=== PATIENT | female | born 1965 | race Caucasian/White ===

== ENCOUNTER 2021-09-23 01:37 | Inpatient (IN) ==
[2021-09-23] MEDS ORDERED: HYDROmorphone INJ 1 MG/ML SYRINGE IV STA ×2 (02:31→03:05)
[2021-09-23] MEDS ORDERED: ONDANSETRON INJ 2 MG/ML 2 ML VIAL IV STA (02:31)
--- NOTE | 2021-09-23 02:41 | Emergency Department Note ---
Impression & Plan Intractable low back pain, Left lumbar radiculopathy Admit to the [facility] ED Provider Note NAME: LAVON VALDEZ AGE: 56 SEX: F ARRIVES VIA: Walk-In INFORMANT: Patient ED PROVIDER(S): Yazmin Ceballos DO CHIEF COMPLAINT: Left leg pain PLAN: Disposition: Admit to the [facility] Condition: Fair MEDICAL DECISION MAKING: This is a 56-year-old female patient with severe left-sided low back pain and lumbar radiculopathy. The patient had obvious nerve root compression on MRI from June and has worsening pain in the low back and left leg. The patient presents to the ER today with numbness to the left foot left calf. Patient was treated with multiple doses of IV antiemetics and IV steroids and continues with moderate to severe pain that she rates as a 7/10. I have discussed the case with the [facility] and they will evaluate for further management. Triage Nursing notes reviewed and agree with them. Additional history obtained from her who is at the bedside Prior medical records reviewed including MRI report of the lumbar spine from 06/28/2021 Vital Signs: reviewed and unremarkable Differential diagnosis: Lumbar radiculopathy; nerve root compression at L4/L5 ER treatment provided: IV Dilaudid x2 IV Zofran IV Decadron Diagnostics interpreted by me: Cardiac Monitoring: Normal sinus rhythm at 82 Laboratory studies: See below Imaging studies: MRI of the lumbar spine with contrast done at [facility] on 06/28/2021 Status post laminectomy at [id number] nerve root compression at L4/L5 with significant disc bulge HPI: 56/F arrives for evaluation of left-sided low back pain and left leg pain; New left foot numbness. The patient went laminectomy at L4/L5 on 05/17/2021 at [facility]. Approximately 2 weeks after the surgery, the patient began to develop significant left-sided low back pain with lumbar radiculopathy down the left lower extremity. She followed up twice with her surgeon and has undergone multiple bursts of prednisone with no relief of the pain. She had a follow-up MRI of the lumbar spine which showed disc bulge and compression of the exiting nerve root at L4/L5. She presents here tonight with significant worsening of the pain over the past 48 hours and numbness to the left foot and posterior left calf. ROS: See above HPI for pertinent positives & negatives. A total of 10 systems reviewed and were otherwise negative. PAST MEDICAL HISTORY:See Below PAST SURGICAL HISTORY:Laminectomy L4/L5 FAMILY HISTORY:See Below SOCIAL HISTORY:Patient is HOME MEDICATIONS:See list ALLERGIES:None VITALS:See Below PHYSICAL EXAMINATION: HEENT: Head - normocephalic and atraumatic. Pupils are equal, round, and reactive to light. Extraocular eye muscles are intact and sclera are anicteric. Ears - bilaterally patent canals with noninjected tympanic membranes and no evidence of hemotympanum. Nose - moist nasal mucosa without discharge. Mouth - moist buccal mucosa. Oropharynx is nonerythematous and there is no tonsillar exudate or edema noted. Neck: Supple; no cervical lymphadenopathy. Heart: Regular rate and rhythm. There is a normal S1 and S2 with no murmurs, clicks, or gallops appreciated. Lungs: Clear to auscultation bilaterally with no wheezes, rales, or rhonchi. Abdomen: Soft, completely nontender, nondistended, with good bowel sounds. Th ere are no palpable pulsatile masses or hepatosplenomegaly. There is no guarding, rigidity, or rebound noted. Extremities: No evidence of cyanosis, clubbing, or edema. There are easily palpable peripheral pulses. Neuro:The patient is awake and alert, oriented to day, time, and place. Muscle strength is 5/5 in all 4 extremities. 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 The patient has significant pain with flexion of the left hip. Patient has numbness noted to the lateral aspect of the left foot and the posterior left calf. Patellar reflexes are 2/4 in both lower extremities. Back: Patient has pain to palpation over the inferior lumbar spine specifically on the left. ED COURSE: Times/Reassessments: 200: The patient was initially evaluated by the [facility]. I evaluated the patient in room C 11. A complete history and physical was performed. I reviewed the report of the MRI of the lumbar spine from 06/28/2021. An IV lock was initiated and labs were drawn as above. The patient was given IV Dilaudid and Zofran. Upon repeat evaluation, the patient had very little relief of her symptoms. She was given a second dose of IV Dilaudid and a dose of IV Decadron. Upon reevaluation of the patient, she was still quite uncomfortable with pain that she rated as a 7/10. I discussed the case with the [facility] and they will evaluate the patient for further care. Yazmin Ceballos DO Past Med/Surg History Medical History (Updated 09/23/21 @ 05:57 by Yazmin Ceballos DO) Depression GERD (gastroesophageal reflux disease) History of endometriosis L4-L5 disc bulge Lumbar back pain with radiculopathy affecting left lower extremity Neuropathy LEFT ARM Tinnitus, bilateral Surgical History H/O elbow surgery RT History of colonoscopy History of endometrial ablation History of partial hysterectomy History of tooth extraction Nausea and vomiting after administration of anesthetic agent S/P cholecystectomy Family History Father Family history of diabetes mellitus Other No family history of adverse response to anesthesia Social History Smoking Status: Never smoker Second Hand Exposure: No; Hx Alcohol Use: Yes Alcohol type: beer Preferred Language: Somali 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 Beliefs That Will Affect Care: None Current Living Situation: Family Feels Safe at Home: Yes Assistive Devices: Contacts Allergies Allergies Allergy/AdvReac Type Severity Reaction Status Date / Time No Known Drug Allergies Allergy Unknown NKDA Verified 09/23/21 02:28 Home Meds Home Medications Medication Instructions Recorded Confirmed ascorbic acid (vitamin C) 250 mg 0 mg PO DAILY 09/23/21 09/23/21 tablet (Vitamin C) calcium 500 mg tablet 500 mg PO DAILY 09/23/21 09/23/21 duloxetine 60 mg capsule,delayed 60 mg PO CQWK 09/23/21 09/23/21 release multivitamin 1 tab PO DAILY 09/23/21 09/23/21 omeprazole 20 mg capsule,delayed 20 mg PO DAILY 09/23/21 09/23/21 release tramadol 50 mg tablet 50 mg PO Q8H PRN 09/23/21 09/23/21 vitamin B complex 1 tab PO DAILY 09/23/21 09/23/21 Results & Data (ED) Vital Signs Vital Signs - 24 hr 09/23/21 01:38 09/23/21 01:53 09/23/21 03:00 Temperature 36.4 C L Temperature Source Temporal Artery Scan Pulse Rate 95 H Pulse Rate [Right Finger] 93 H Pulse Rhythm Pulse Rhythm [Right Finger] Regular Pulse Strength [Right Finger] Normal Respiratory Rate 18 22 Respiratory Effort / Characteristics Non-Labored Non-Labored Respiratory Depth Normal Normal Blood Pressure 145/55 H Blood Pressure [Left Arm] 141/98 H Blood Pressure Mean 85 Blood Pressure Mean [Left Arm] 112 Blood Pressure Position [Left Arm] Pulse Oximetry 98 95 Oxygen Delivery Method Room Air Oxygen Flow Rate Sepsis Recent Fever Within 48 Hours No Sepsis New/Unexplained Change in Mental Status N/A Sepsis Action Taken by Nursing No Action Required Pulse Oximetry Post Tiitration 09/23/21 03:33 09/23/21 04:35 09/23/21 04:36 Temperature Temperature Source Pulse Rate 96 H Pulse Rate [Right Finger] 92 H Pulse Rhythm Regular Pulse Rhythm [Right Finger] Regular Pulse Strength [Right Finger] Normal Respiratory Rate 16 12 Respiratory Effort / Characteristics Non-Labored Spontaneous Respiratory Depth Normal Blood Pressure Blood Pressure [Left Arm] 145/103 H Blood Pressure Mean Blood Pressure Mean [Left Arm] 117 Blood Pressure Position [Left Arm] Sitting Pulse Oximetry 94 88 L 88 L Oxygen Delivery Method Room Air Room Air Nasal Cannula Oxygen Flow Rate 2 Sepsis Recent Fever Within 48 Hours Sepsis New/Unexplained Change in Mental Status Sepsis Action Taken by Nursing Pulse Oximetry Post Tiitration 94 Laboratory Data Result diagrams: 09/23/21 02:35 09/23/21 02:35 Lab Results 09/23/21 09/23/21 09/23/21 Range/Units 02:35 02:35 03:53 WBC 8.58 (4.8-10.8) K/uL RBC 4.57 (4.2-5.4) M/uL Hgb 14.3 (12.0-16.0) g/dL Hct 42.2 (37-47) % MCV 92.3 (80-100) fL MCH 31.3 (25-34) pg MCHC 33.9 (32-36) g/dL RDW Std Deviation 43.5 (36.4-46.3) fL RDW Coeff of Phyllis 12.9 (11.5-14.5) % Plt Count 220 (130-400) K/uL MPV 11.3 H (7.4-10.4) fL Immature Gran % (Auto) 0.1 % Neut % (Auto) 66.8 % Lymph % (Auto) 21.2 % [place] % (Auto) 9.4 % Eos % (Auto) 2.3 % Baso % (Auto) 0.2 % Neut # (Auto) 5.72 (1.4-6.5) K/uL Lymph # (Auto) 1.82 (1.2-3.4) K/uL [place] # (Auto) 0.81 H (0.11-0.59) K/uL Eos # (Auto) 0.20 (0-0.5) K/uL Baso # (Auto) 0.02 (0-0.2) K/uL Immature Gran # (Auto) 0.01 (0.00-0.02) K/uL Sodium 137 (136-145) mmol/L Potassium 3.9 (3.5-5.1) mmol/L Chloride 103 (98-107) mmol/L Carbon Dioxide 28 (21-32) mmol/L Anion Gap 6 (3-11) BUN 20 (6-23) mg/dl Creatinine 0.86 (0.6-1.2) mg/dl Est Cr Clr Drug Dosing 84.8 ml/min Est GFR ( Amer) 87.5 ml/min Est GFR (Non-Af Amer) 75.5 ml/min BUN/Creatinine Ratio 23.3 H (10-20) Glucose 151 H (70-99(Fasting)) mg/dl Calcium 9.7 (8.5-10.1) mg/dl SARS-CoV-2, RNA, NAAT NEGATIVE (NEGATIVE) Administered Medications Discontinued Medications Dexamethasone (Dexamethasone Sod Inj 4 Mg/Ml Vial) 10 mg IV NOW STA Stop: 09/23/21 03:06 Last Admin: 09/23/21 03:11 Dose: 10 mg Documented by: [id number] Hydromorphone HCl (Hydromorphone Inj 1 Mg/Ml Syringe) 1 mg IV NOW STA Stop: 09/23/21 02:32 Last Admin: 09/23/21 02:43 Dose: 1 mg Documented by: [id number] Hydromorphone HCl (Hydromorphone Inj 1 Mg/Ml Syringe) 1 mg IV NOW STA Stop: 09/23/21 03:06 Last Admin: 09/23/21 03:12 Dose: 1 mg Documented by: [id number] Ondansetron HCl (Ondansetron Inj 2 Mg/Ml 2 Ml Vial) 4 mg IV NOW STA Stop: 09/23/21 02:32 Last Admin: 09/23/21 02:43 Dose: 4 mg Documented by: [id number] Discharge Plan Visit Data Chief Complaint: Leg Injury/Pain Stated Complaint: PAIN IN LEFT LEG ED Provider: Yazmin Ceballos Discharge Problem: Intractable low back pain, Left lumbar radiculopathy Patient Disposition: Admitted As Inpatient Discharge Instructions Interventions: ED Discharge Assessment Last Done: 09/23/21 05:26
[2021-09-23 02:53] LABS: Hematocrit (blood only) 42.2 % (37-47); Hemoglobin 14.3 g/dL (12.0-16.0); Mean Corpuscular Hemoglobin 31.3 pg (25-34); Mean Corpuscular Hgb Conc 33.9 g/dL (32-36); Mean Corpuscular Volume 92.3 fL (80-100); Mean Platelet Volume 11.3 fL (7.4-10.4); Platelet Count 220 K/uL (130-400); RDW Coefficient of Variation 12.9 % (11.5-14.5); RDW Standard Deviation 43.5 fL (36.4-46.3); Red Blood Count 4.57 M/uL (4.2-5.4); White Blood Count 8.58 K/uL (4.8-10.8)
[2021-09-23] MEDS ORDERED: DEXAMETHASONE SOD INJ 4 MG/ML VIAL IV STA (03:05)
[2021-09-23 03:14] LABS: BUN Creatinine Ratio 23.3 (10-20); Calcium 9.7 mg/dl (8.5-10.1); Creatinine Clr Calc Pharmacy 84.8 ml/min; Est GFR (African American) 87.5 ml/min; Est GFR (Non-African American) 75.5 ml/min; Potassium 3.9 mmol/L (3.5-5.1)
[2021-09-23 03:17] LABS: Basophils # (auto) 0.02 K/uL (0-0.2); Basophils % (auto) 0.2 %; Eosinophils % (auto) 2.3 %; Immature Granulocytes # (auto) 0.01 K/uL (0.00-0.02); Immature Granulocytes % (auto) 0.1 %; Lymphocytes # (auto) 1.82 K/uL (1.2-3.4); Lymphocytes % (auto) 21.2 %; Monocytes # (auto) 0.81 K/uL (0.11-0.59); Monocytes % (auto) 9.4 %; Neutrophils # (auto) 5.72 K/uL (1.4-6.5); Neutrophils % (auto) 66.8 %
--- NOTE | 2021-09-23 05:15 | History & Physical Report ---
Date of Service September 23, 2021 Assessment & Plan (1) L4-L5 disc bulge: Plan: L4/L5 disc bulge/lumbar back pain with LLE radiculopathy/status post lumbar laminectomy L4-L5 on 06/06/2021 at [facility]- Received dexamethasone 10 mg IV in the ED and Dilaudid 1 mg IV x2 with some relief in symptoms this evening Dexamethasone 6 mg IV every 8 hours Acetaminophen 650 mg p.o. every 6 hours as needed mild pain or fever Increase her tramadol from 50 mg p.o. every 8 hours as needed to 100 mg p.o. every 6 hours as needed moderate pain Dilaudid 1 mg IV every 3 hours as needed for severe pain Continue duloxetine, but change from extended release to 60 mg p.o. daily due to formulary issues Consult orthopedic spine surgery Dr. Oneal (2) Lumbar back pain with radiculopathy affecting left lower extremity: Plan: Patient is status post (3) GERD (gastroesophageal reflux disease): Plan: Continue omeprazole/pantoprazole History of Present Illness Chief Complaint: The patient presents to the emergency department with complaint of worsening left-sided low back and left lower extremity leg pain, with foot numbness Primary Care Provider: Merna Slater MD The patient is a 56-year-old female with a past medical history including GERD, SNHL, gluteus minimus tendon tear, cervical radiculopathy, left hip trochanteric bursitis, gluteal tendinitis of left buttock, and status post lumbar laminectomy at L4/L5 on 05/17/2021 at [facility]. Patient reports that her symptoms did not appreciably improve, and in fact 2 weeks after surgery and since that time, her symptoms have gradually worsened. She has been relatively incapacitated, primarily sitting on her chair for most of the day at home. She reports having undergone 3 courses of prednisone without significant improvement . She did have 1 pain management ejection sometime in June. She did undergo an MRI on 06/28/2021, which showed a bulging disc with compression of exiting nerve root at L4/L5. She presents to the emergency department this evening, due to inability to tolerate the pain any longer Allergies Allergy/AdvReac Type Severity Reaction Status Date / Time No Known Drug Allergies Allergy Unknown NKDA Verified 09/23/21 02:28 Home Medications Medication Instructions Recorded Confirmed Type ascorbic acid (vitamin C) 250 mg 0 mg PO DAILY 09/23/21 09/23/21 History tablet (Vitamin C) calcium 500 mg tablet 500 mg PO DAILY 09/23/21 09/23/21 History duloxetine 60 mg capsule,delayed 60 mg PO CQWK 09/23/21 09/23/21 History release multivitamin 1 tab PO DAILY 09/23/21 09/23/21 History omeprazole 20 mg capsule,delayed 20 mg PO DAILY 09/23/21 09/23/21 History release tramadol 50 mg tablet 50 mg PO Q8H PRN 09/23/21 09/23/21 History vitamin B complex 1 tab PO DAILY 09/23/21 09/23/21 History Past Med/Surg History Medical History (Updated 09/23/21 @ 05:11 by Rasheed Beckham MD) Depression GERD (gastroesophageal reflux disease) History of endometriosis L4-L5 disc bulge Lumbar back pain with radiculopathy affecting left lower extremity Neuropathy LEFT ARM Tinnitus, bilateral Surgical History H/O elbow surgery RT History of colonoscopy History of endometrial ablation History of partial hysterectomy History of tooth extraction Nausea and vomiting after administration of anesthetic agent S/P cholecystectomy Family History Father Family history of diabetes mellitus Other No family history of adverse response to anesthesia Social History Smoking Status: Never smoker Second Hand Exposure: No; Hx Alcohol Use: Yes Alcohol type: beer Preferred Language: Panamanian 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 Plate Forming Required: No Beliefs That Will Affect Care: None Current Living Situation: Family Feels Safe at Home: Yes Assistive Devices: Contacts Review of Systems Review of Systems: The patient denies chest pain, palpitations, shortness of breath, dyspnea on exertion, cough, lower extremity swelling, sore throat, fevers, chills, sweats, weight change, fatigue, nausea, vomiting, diarrhea , constipation, abdominal pain, pelvic pain, blood in urine or stool, dysuria, urinary frequency or urgency, lightheadedness, dizziness, headache, memory loss, loss of consciousness, rash, abnormal bruising or bleeding, imbalance, focal or generalized weakness, numbness or tingling in arms or right leg, generalized arthralgias or myalgias, or night sweats. The review of systems is otherwise negative other than for that already noted above, and at least 10 systems have been reviewed. Physical Exam Physical Exam: The patient is awake, alert and oriented 3, well developed and well nourished, normocephalic and atraumatic, lying in bed and in no acute distress. HEENT--PERRL, EOMI, mucous membranes and oropharynx dry. Neck--supple. No JVD. No bruits. Thyroid normal, trachea midline, no adenopathy . Heart--normal S1 and S2. No murmurs, rubs or gallops. Lungs--clear bilaterally, no respiratory distress, no accessory muscle use. Abdomen--normal bowel sounds and soft. Nontender. Nondistended, no hernias or masses, no organomegaly. Extremities--no cyanosis or clubbing. No edema. There are good distal pulses bilaterally. Dermatologic--normal skin turgor, normal color, no abnormal lymph nodes, no rash. Neurologic--cranial nerves II through XII grossly intact. Rheumatologic--limited exam due to low back and left leg pain Psychiatric--normal affect. Results & Data Results & Data ([facility]) Vital Signs (Past 12 Hours) Vital Signs Temp Pulse Pulse Resp BP BP Pulse Ox 09/23/21 04:36 88 L 09/23/21 04:35 96 H 12 88 L 09/23/21 03:33 92 H 16 145/103 H 94 09/23/21 03:00 93 H 22 141/98 H 95 09/23/21 01:38 36.4 C L 95 H 18 145/55 H 98 Laboratory Results Laboratory Results WBC 8.58 K/uL (4.8-10.8) 09/23/21 02:35 RBC 4.57 M/uL (4.2-5.4) 09/23/21 02:35 Hgb 14.3 g/dL (12.0-16.0) 09/23/21 02:35 Hct 42.2 % (37-47) 09/23/21 02:35 MCV 92.3 fL (80-100) 09/23/21 02:35 MCH 31.3 pg (25-34) 09/23/21 02:35 MCHC 33.9 g/dL (32-36) 09/23/21 02:35 RDW Std Deviation 43.5 fL (36.4-46.3) 09/23/21 02:35 RDW Coeff of Phyllis 12.9 % (11.5-14.5) 09/23/21 02:35 Plt Count 220 K/uL (130-400) 09/23/21 02:35 MPV 11.3 fL (7.4-10.4) H 09/23/21 02:35 Immature Gran % (Auto) 0.1 % 09/23/21 02:35 Neut % (Auto) 66.8 % 09/23/21 02:35 Lymph % (Auto) 21.2 % 09/23/21 02:35 [place] % (Auto) 9.4 % 09/23/21 02:35 Eos % (Auto) 2.3 % 09/23/21 02:35 Baso % (Auto) 0.2 % 09/23/21 02:35 Neut # (Auto) 5.72 K/uL (1.4-6.5) 09/23/21 02:35 Lymph # (Auto) 1.82 K/uL (1.2-3.4) 09/23/21 02:35 [place] # (Auto) 0.81 K/uL (0.11-0.59) H 09/23/21 02:35 Eos # (Auto) 0.20 K/uL (0-0.5) 09/23/21 02:35 Baso # (Auto) 0.02 K/uL (0-0.2) 09/23/21 02:35 Immature Gran # (Auto) 0.01 K/uL (0.00-0.02) 09/23/21 02:35 Sodium 137 mmol/L (136-145) 09/23/21 02:35 Potassium 3.9 mmol/L (3.5-5.1) 09/23/21 02:35 Chloride 103 mmol/L (98-107) 09/23/21 02:35 Carbon Dioxide 28 mmol/L (21-32) 09/23/21 02:35 Anion Gap 6 (3-11) 09/23/21 02:35 BUN 20 mg/dl (6-23) 09/23/21 02:35 Creatinine 0.86 mg/dl (0.6-1.2) 09/23/21 02:35 Est Cr Clr Drug Dosing 84.8 ml/min 09/23/21 02:35 Est GFR ( Amer) 87.5 ml/min 09/23/21 02:35 Est GFR (Non-Af Amer) 75.5 ml/min 09/23/21 02:35 BUN/Creatinine Ratio 23.3 (10-20) H 09/23/21 02:35 Glucose 151 mg/dl (70-99(Fasting)) H 09/23/21 02:35 Calcium 9.7 mg/dl (8.5-10.1) 09/23/21 02:35 SARS-CoV-2, RNA, NAAT NEGATIVE (NEGATIVE) 09/23/21 03:53 Code Status & VTE Plan Code Status Full code VTE Prophylaxis Plan VTE Prophylaxis will be ordered: Yes PG Care Time/CCT Total # of Minutes Spent Total Time Spent with Patient: Total time spent is greater than 50% in coordination of care (as documented) at patient's floor/unit and/or counseling patient: Coding Level of Care Code INT OBSERVATION CARE 70M LVL 3 Diagnoses L4-L5 disc bulge M51.26 Lumbar back pain with radiculopathy affecting left lower extremity M54.16 GERD (gastroesophageal reflux disease) K21.9
[2021-09-23] MEDS ORDERED: ONDANSETRON INJ 2 MG/ML 2 ML VIAL IV PRN (05:55)
[2021-09-23] MEDS ORDERED: ACETAMINOPHEN 325 MG TAB PO PRN (05:55)
[2021-09-23] MEDS: HYDROmorphone INJ 1 MG/ML SYRINGE IV PRN ×3 (06:19→23:37)
--- NOTE | 2021-09-23 08:21 | Hospitalist Progress Note ---
Date of Service September 23, 2021 Assessment & Plan (1) L4-L5 disc bulge: Plan: L4/L5 disc bulge/lumbar back pain with LLE radiculopathy/status post lumbar laminectomy L4-L5 on 06/06/2021 at [facility]- Received dexamethasone 10 mg IV in the ED and Dilaudid 1 mg IV x2 with some relief in symptoms Pain control -Continue dexamethasone 6 mg IV q8h -Scheduled acetaminophen 650 mg PO q6h -Tramadol 100 q6h PRN -Dilaudid 1 mg IV q3h as needed for severe pain -Continue duloxetine, but change from extended release to 60 mg p.o. daily due to formulary issues Orthopedics consulted -Lumbar spine XR- no acute process, degenerative change -Lumbar spine MRI pending, will decide surgical vs nonsurgical management then (2) Lumbar back pain with radiculopathy affecting left lower extremity: Plan: Patient is status post laminectomy 05/2021 (3) GERD (gastroesophageal reflux disease): Plan: Continue omeprazole/pantoprazole Admission and Anticipated Discharge Date Admission Date: September 23, 2021 Supervising Physician Co-Signing Physician Notes I personally examined the patient and verified all rosenbaum points of history and exam, discussed case, and agree with decision making with Dr Hall pain controlled w judie. awaiting MRI reading vitals noted nad heent nt at mmm breathing unlabored no accessory muscles good effort intractable back pain - awaiting MRI reading, pain control for now otherwise as above Subjective Pt received multiple doses of morphine PRN since admission with minimal pain relief, reports IV steroids have helped her sleep and controlled pain. Still in significant distress, crying due to pain- reports 7/10 pain of lower back and L leg. Stated her pain has made it very difficult to sleep and function normally over the past few months. Review of Systems Review of Systems: Per subjective Physical Exam Physical Exam: General: crying from pain, in distress HEENT--EOMI, mucous membranes and oropharynx dry. Neck--supple. No JVD. No bruits. Thyroid normal, trachea midline, no adenopathy. Heart--normal S1 and S2. No murmurs, rubs or gallops. Lungs--clear bilaterally, no respiratory distress, no accessory muscle use. Abdomen--normal bowel sounds and soft. Nontender. Nondistended, no hernias or masses, no organomegaly. Extremities--no cyanosis or clubbing. No edema. There are good distal pulses bilaterally. Dermatologic--normal skin turgor, normal color, no abnormal lymph nodes, no rash. Neurologic--cranial nerves II through XII grossly intact. 4/5 strength of LLE, 5/5 b/l dorsiflexion/plantarflexion, sensory deficit of LLE, positive straight leg raise test on LLE Results & Data Results & Data ([facility]) Vital Signs (Past 12 Hours) Vital Signs Temp Pulse Pulse Resp BP BP Pulse Ox 09/23/21 07:44 36.8 C 93 H 18 114/77 95 09/23/21 05:57 37.0 C 116 H 18 137/90 94 09/23/21 05:19 84 18 145/108 H 97 09/23/21 04:36 88 L 09/23/21 04:35 96 H 12 88 L 09/23/21 03:33 92 H 16 145/103 H 94 09/23/21 03:00 93 H 22 141/98 H 95 09/23/21 01:38 36.4 C L 95 H 18 145/55 H 98 Resident Activity Tracking Resident Involvement: Resident Care Provided Care Provided: Adult Hospital Medicine
--- NOTE | 2021-09-23 08:30 | Orthopedic Consultation ---
Date of Consultation September 23, 2021 Assessment & Plan (1) Left lumbar radiculopathy: Assessment left lumbar radiculopathy. Plan at this time she does have an L5-S1 radiculopathy status postlaminectomy. I like to update an MRI lumbar spine. I would also ask for x-rays. Reviewed this in detail with the patient. I reviewed these images with her once they are completed and we will come up with a treatment plan. History of Present Illness Reason for Consultation: Left leg radiculopathy Attending Physician: Rasheed Beckham MD History of Present Illness Is a very pleasant 56-year-old female who presents with history of severe left leg radiculopathy. She undergone a laminectomy in May of this year and [place]. Unfortunately she continued to have radiculopathy. It is been unremitting in nature. He describes pain involving the left buttock posterior thigh and into the medial foot. Markedly exacerbated with activity. Right lower extremities asymptomatic. She has followed up with her original surgeon sounds like several months ago but no revision surgery was offered. Allergies Allergy/AdvReac Type Severity Reaction Status Date / Time No Known Drug Allergies Allergy Unknown NKDA Verified 09/23/21 02:28 Home Medications Medication Instructions Recorded Confirmed Type ascorbic acid (vitamin C) 250 mg 0 mg PO DAILY 09/23/21 09/23/21 History tablet (Vitamin C) calcium 500 mg tablet 500 mg PO DAILY 09/23/21 09/23/21 History duloxetine 60 mg capsule,delayed 60 mg PO CQWK 09/23/21 09/23/21 History release multivitamin 1 tab PO DAILY 09/23/21 09/23/21 History omeprazole 20 mg capsule,delayed 20 mg PO DAILY 09/23/21 09/23/21 History release tramadol 50 mg tablet 50 mg PO Q8H PRN 09/23/21 09/23/21 History vitamin B complex 1 tab PO DAILY 09/23/21 09/23/21 History Patient History Medical History (Updated 09/23/21 @ 05:57 by Yazmin Ceballos DO) Depression GERD (gastroesophageal reflux disease) History of endometriosis L4-L5 disc bulge Lumbar back pain with radiculopathy affecting left lower extremity Neuropathy LEFT ARM Tinnitus, bilateral Surgical History H/O elbow surgery RT History of colonoscopy History of endometrial ablation History of partial hysterectomy History of tooth extraction Nausea and vomiting after administration of anesthetic agent S/P cholecystectomy Family History Father Family history of diabetes mellitus Other No family history of adverse response to anesthesia Social History Smoking Status: Never smoker Second Hand Exposure: No; Hx Alcohol Use: No Hx Substance Use: No Preferred Language: Ukrainian Communication Ability: Effective Windows Architect Required: No Beliefs That Will Affect Care: None Current Living Situation: Spouse and Family Feels Safe at Home: Yes Assistive Devices: None Physical Exam Physical Exam: Patient is in obvious distress. She exhibits severe tension signs with straight leg raising on the left negative on the right. She has weakness to the left extensor houses longus and a 4-/5 compared to 5 or 5 on the right. Plantar flexion dorsiflexion seems to be intact. There is marked sensory deficits to cold and light touch left lower extremity compared to the right. Results & Data ([facility]) Vital Signs (Past 12 Hours) Vital Signs Temp Pulse Pulse Resp BP BP Pulse Ox 09/23/21 07:44 36.8 C 93 H 18 114/77 95 09/23/21 05:57 37.0 C 116 H 18 137/90 94 09/23/21 05:19 84 18 145/108 H 97 09/23/21 04:36 88 L 09/23/21 04:35 96 H 12 88 L 09/23/21 03:33 92 H 16 145/103 H 94 09/23/21 03:00 93 H 22 141/98 H 95 09/23/21 01:38 36.4 C L 95 H 18 145/55 H 98
--- NOTE | 2021-09-23 10:35 | XRay Report ---
XR lumbar spine 2-3V CLINICAL HISTORY: standing postop films TECHNIQUE: 2 views of the lumbar spine were obtained. Comparison: None available at the time of this dictation. FINDINGS: There is no evidence of an acute fracture. Degenerative changes are seen in the lumbar spine. The ali gnment is normal. No soft tissue abnormality is seen. IMPRESSION: Degenerative changes as above without acute fracture or subluxation. ACT 112: Negative or not required by law. Electronically signed by: Francesco Pinon M.D. 09/23/2021 10:34 AM
[2021-09-23] MEDS ORDERED: GADOBUTROL 30ML VIAL IV ONE (10:41)
[2021-09-23] MEDS: dexAMETHasone 6 MG in SYRINGE 0 ML IV SCH ×3 (11:53→23:35)
[2021-09-23] MEDS: PANTOprazole 40 MG TAB PO SCH (11:53)
[2021-09-23] MEDS: MULTIVITAMIN TAB PO SCH (11:54)
[2021-09-23] MEDS: VITAMIN B COMPLEX TAB PO SCH (11:54)
[2021-09-23] MEDS: DULoxetine HCL 60 MG CAP PO SCH (11:54)
[2021-09-23] MEDS: CALCIUM CARBONATE 1250MG TAB PO SCH (11:54)
[2021-09-23] MEDS: ACETAMINOPHEN 325 MG TAB PO SCH ×2 (15:00→20:40)
[2021-09-23] MEDS: traMADol HCL 50 MG TABLET PO PRN (19:16)
--- NOTE | 2021-09-23 23:41 | Magnetic Resonance Report ---
MR lumbar spine wo/w con CLINICAL HISTORY: post op left leg pain TECHNIQUE: 3 plane localizer images, sagittal T2, sagittal T1, sagittal STIR, axial T1, axial T2 herlinda g with postcontrast axial T1 and sagittal T1 fat-saturated sequences were obtained of the lumbar spin e, before and after intravenous administration of 12 mL of MultiHance. Comparison: Comparison is made to lumbar spine radiographs 09/23/2021 FINDINGS: The alignment is anatomical. Multilevel degenerative changes are seen in a focal extrusion is seen a t L4-L5. L1-L2: Moderate right greater than left posterior disc bulge is seen with mild canal stenosis and mil d right neural foraminal stenosis. L2-L3: Broad-based posterior disc bulge and bilateral facet arthropathy result in moderate canal sten osis and mild bilateral neuroforaminal stenosis. L3-L4: Facet arthropathy is seen. There is a broad-based posterior disc bulge with moderate to severe canal stenosis, AP diameter 7 mm. Moderate bilateral neuroforaminal stenosis is seen. L4-L5: There is a moderate posterior disc bulge and a disc extrusion resulting in severe canal stenos is, AP diameter 5 mm. There is moderate to severe right and severe left neural foraminal stenosis. L5-S1: Small posterior disc bulge is seen without significant canal stenosis. There is mild bilateral neuroforaminal stenosis. The spinal ligaments are intact, without evidence of disruption or abnormal signal intensity. The spi nal cord is normal in signal intensity and there is no evidence of cord contusion. There is no eviden ce of an extradural, intradural, extramedullary or intramedullary lesion. Visualized soft tissues are normal. IMPRESSION: Disc extrusion at L4-L5. There is up to severe canal stenosis, AP diameter 5 mm. In addition, there i s up to moderate to severe right and severe left neuroforaminal stenosis. ACT 112: Negative or not required by law. Electronically signed by: Francesco Pinon M.D. 09/23/2021 11:39 PM
[2021-09-24] MEDS: ACETAMINOPHEN 325 MG TAB PO SCH ×4 (03:57→20:05)
--- NOTE | 2021-09-24 07:50 | Hospitalist Progress Note ---
Date of Service September 24, 2021 Assessment & Plan (1) L4-L5 disc bulge: Plan: L4/L5 disc bulge/lumbar back pain with LLE radiculopathy/status post lumbar laminectomy L4-L5 on 06/06/2021 at [facility]- Received dexamethasone 10 mg IV in the ED and Dilaudid 1 mg IV x2 with some relief in symptoms Pain control -Continue dexamethasone 6 mg IV q8h -Scheduled acetaminophen 650 mg PO q6h -Tramadol 100 q6h PRN -Dilaudid 1 mg IV q3h as needed for severe pain -Continue duloxetine, but changed from extended release to 60 mg p.o. daily due to formulary issues Orthopedics consulted -Lumbar spine XR- no acute process, degenerative change -Lumbar spine MRI- Disc extrusion at L4-L5. There is up to severe canal stenosis, AP diameter 5 mm. In addition, there is up to moderate to severe right and severe left neuroforaminal stenosis. - Procedure by ortho tomorrow, NPO after midnight (2) Lumbar back pain with radiculopathy affecting left lower extremity: Plan: Patient is status post laminectomy 05/2021 (3) GERD (gastroesophageal reflux disease): Plan: Continue omeprazole/pantoprazole Admission and Anticipated Discharge Date Admission Date: September 23, 2021 Supervising Physician Co-Signing Physician Notes I personally examined the patient and verified all rosenbaum points of history and exam, discussed case, and agree with decision making with Dr Hall pain controlled. Reviewed plan, she is happy that she is having surgery tomorrow vitals noted nad heent nt at mmm breathing unlabored no accessory muscles good effort intractable back pain -appears to be due to disc bulge with spinal stenosis/impingementcontinue pain control today, for surgery tomorrow otherwise as above, pharmacologic DVT prophylaxis on hold due to impending spine surgery Subjective Patient seen at bedside this morning. No acute events reported overnight. MRI done yesterday is revealing of severe foraminal stenosis bilaterally at the L4- L5 level. Patient curious as to whether or not she is going to require surgery and would prefer to have surgery so she does not have to deal with the pain that she is in. She states that she remains lying down in bed her pain is not too bad but if she attempts to move her pain can shoot up to an 8 or 9 out of 10. Continues to deny peritoneal numbness, urinary incontinence, or bowel incontine nce. Otherwise has no other complaints at this time. Review of Systems Review of Systems: All systems reviewed & are unremarkable except as noted in HPI & below Physical Exam Physical Exam: General: crying from pain, in distress HEENT--EOMI, mucous membranes and oropharynx dry. Neck--supple. No JVD. No bruits. Thyroid normal, trachea midline, no adenopathy. Heart--normal S1 and S2. No murmurs, rubs or gallops. Lungs--clear bilaterally, no respiratory distress, no accessory muscle use. Abdomen--normal bowel sounds and soft. Nontender. Nondistended, no hernias or masses, no organomegaly. Extremities--no cyanosis or clubbing. No edema. There are good distal pulses bilaterally. Dermatologic--normal skin turgor, normal color, no abnormal lymph nodes, no rash. Neurologic--cranial nerves II through XII grossly intact. 4/5 strength of LLE, 5/5 b/l dorsiflexion/plantarflexion, sensory deficit of LLE, positive straight leg raise test on LLE Results & Data Results & Data ([facility]) Vital Signs (Past 12 Hours) Vital Signs Temp Pulse Resp BP BP Pulse Ox 09/24/21 07:35 36.9 C 101 H 18 144/75 H 92 09/23/21 23:10 36.9 C 88 14 120/67 95
[2021-09-24] MEDS: dexAMETHasone 6 MG in SYRINGE 0 ML IV SCH ×2 (08:10→16:46)
[2021-09-24] MEDS: VITAMIN B COMPLEX TAB PO SCH (08:10)
[2021-09-24] MEDS: PANTOprazole 40 MG TAB PO SCH (08:10)
[2021-09-24] MEDS: DULoxetine HCL 60 MG CAP PO SCH (08:10)
[2021-09-24] MEDS: MULTIVITAMIN TAB PO SCH (08:11)
[2021-09-24] MEDS: CALCIUM CARBONATE 1250MG TAB PO SCH (08:11)
--- NOTE | 2021-09-24 10:32 | Orthopedic Progress Note ---
Date of Service September 24, 2021 Assessment & Plan (1) Recurrent herniation of lumbar disc: Plan: MRI lumbar spine yesterday demonstrates evidence of a large recurrent disc herniation L4-5 on the left with foraminal stenosis. Creating severe stenosis and marked compression of the traversing and exiting nerve roots. I had a lengthy discussion today reviewing the MRI with the patient. I am recommending a revision decompression fusion L4-L5. Risk benefits pros cons alternatives were outlined in detail. We will make her n.p.o. for midnight and plan for surgery tomorrow in light of the severity of her pain and limitations. Patient stands and agrees. Admission and Anticipated Discharge Date Admission Date: September 23, 2021 Subjective Patient continues to have severe left leg pain requiring IV narcotics to control her symptoms. She states her pain is 8-9 out of 10. Physical Exam Physical Exam: On exam she still prefers to lie in bed. She is most comfortable in a position. Results & Data ([facility]) Vital Signs (Past 12 Hours) Vital Signs Temp Pulse Resp BP BP Pulse Ox 09/24/21 07:35 36.9 C 101 H 18 144/75 H 92 09/23/21 23:10 36.9 C 88 14 120/67 95
[2021-09-24] MEDS: traMADol HCL 50 MG TABLET PO PRN (15:05)
--- NOTE | 2021-09-24 15:50 | Billing Data ---
Date of Service September 24, 2021 Coding Level of Care Code 66632 Subseq Obs Care Lvl 2
[2021-09-24] MEDS: HYDROmorphone INJ 1 MG/ML SYRINGE IV PRN ×2 (16:58→20:06)
[2021-09-25] MEDS: dexAMETHasone 6 MG in SYRINGE 0 ML IV SCH ×3 (00:22→16:48)
[2021-09-25] MEDS: ACETAMINOPHEN 325 MG TAB PO SCH ×3 (03:34→16:46)
[2021-09-25 07:43] LABS: Hematocrit (blood only) 40.8 % (37-47); Hemoglobin 13.6 g/dL (12.0-16.0); Mean Corpuscular Hemoglobin 31.6 pg (25-34); Mean Corpuscular Hgb Conc 33.3 g/dL (32-36); Mean Corpuscular Volume 94.7 fL (80-100); Mean Platelet Volume 11.8 fL (7.4-10.4); Platelet Count 218 K/uL (130-400); RDW Coefficient of Variation 12.5 % (11.5-14.5); Red Blood Count 4.31 M/uL (4.2-5.4); White Blood Count 13.96 K/uL (4.8-10.8)
[2021-09-25] MEDS: PANTOprazole 40 MG TAB PO SCH (07:50)
[2021-09-25] MEDS: MULTIVITAMIN TAB PO SCH (07:50)
[2021-09-25] MEDS: VITAMIN B COMPLEX TAB PO SCH (07:50)
[2021-09-25] MEDS: CALCIUM CARBONATE 1250MG TAB PO SCH (07:50)
[2021-09-25] MEDS: DULoxetine HCL 60 MG CAP PO SCH (07:50)
[2021-09-25 08:08] LABS: Calcium 9.8 mg/dl (8.5-10.1); Creatinine Clr Calc Pharmacy 90.1 ml/min; Est GFR (African American) 95.5 ml/min; Est GFR (Non-African American) 82.4 ml/min
--- NOTE | 2021-09-25 08:45 | Hospitalist Progress Note ---
Date of Service September 25, 2021 Assessment & Plan (1) L4-L5 disc bulge: Plan: 56 yo F with PMH of L4/L5 disc herniation s/p laminectomy 05/2021 at [facility] presenting with persistent lumbar back and LLE pain. L4-L5 disc herniation with canal stenosis -Lumbar spine MRI -Disc extrusion at L4-L5. There is up to severe canal stenosis, AP diameter 5 mm -Moderate to severe right and severe left neuroforaminal stenosis. -Scheduled today for surgical revision with orthopedics- decompression fusion of L4-L5 -Will order PT/OT after procedure -Continue pain control postoperatively as below Pain control -Continue dexamethasone 6 mg IV q8h. Will d/c steroids after surgery. -Scheduled acetaminophen 650 mg PO q6h -Tramadol 100 q6h PRN -Dilaudid 1 mg IV q3h as needed for severe pain -Duloxetine 60 mg daily (2) Lumbar back pain with radiculopathy affecting left lower extremity: Plan: Patient is status post laminectomy 05/2021 (3) GERD (gastroesophageal reflux disease): Plan: Continue omeprazole/pantoprazole Admission and Anticipated Discharge Date Admission Date: September 23, 2021 Supervising Physician Co-Signing Physician Notes Attending attestation Pt seen and examined in concert with Dr. Hall. In agreement with the documented findings as noted in the resident documentation with any exceptions or additions as noted here. Evaluated postoperatively - reports resolved intractable back pain with now well controlled postoperative aching pain of the lower back. On examination, S1/S2 nl RRR no MCG. CTAB. Abd NT/ND BS+ve Intractable lower back pain 2/2 L4/5 disc herniation s/p revision of laminectomy, POD 0 - ortho spine and PT/OT consult - pain control with scaled pain regimen, duloxetine. Else see resident documentation as noted. Subjective 56 yo female scheduled for revision decompression fusion L4-L5 today with Dr. Oneal. No overnight events. Pain continues to be well controlled. She states she has no pain while lying in bed. But will have significant discomfort with standing and if she lies in bed a particular position. She states the discomfort with standing is alleviated with leaning forward. Continues to deny saddle anesthesia, bowel and urinary incontinence. Denies CP, difficulty breathing, pain with inspiration. Continues to endorse loss of sensation to the lateral and posterior aspect of her left LE. States that the discomfort is localized to her left hip and radiates down the posterior aspect of the left leg. Denies loss of strength in her LE since admissions. Denies blood or proteinuria in her urine. Review of Systems Review of Systems: Per subjective Physical Exam Physical Exam: General: NAD. Responding appropriately to questions. HEENT--EOMI Heart--normal S1 and S2. No murmurs, rubs or gallops. Lungs--clear bilaterally, no respiratory distress, no accessory muscle use. Abdomen--normal bowel sounds and soft. Nontender. Nondistended, no hernias or masses, no organomegaly. Extremities--no cyanosis or clubbing. No edema. There is adequate perfusion in her LE. Dermatologic--no rashes to exposed areas Neurologic--cranial nerves II through XII grossly intact. UE and LE strength intact. Loss of sensation to the posterior and lateral area of her left LE. Results & Data Results & Data ([facility]) Vital Signs (Past 12 Hours) Vital Signs Temp Pulse Resp BP Pulse Ox 09/25/21 06:21 36.8 C 91 H 16 137/80 94 Resident Activity Tracking Resident Involvement: Resident Care Provided Care Provided: Adult Hospital Medicine
[2021-09-25] MEDS ORDERED: GLYCOPYRROLATE 0.2 MG/ML VIAL ONE (11:18)
[2021-09-25] MEDS ORDERED: PROPOFOL IV EMULSION 10 MG/ML 20 ML VIAL IV ONE (11:18)
[2021-09-25] MEDS ORDERED: ONDANSETRON INJ 2 MG/ML 2 ML VIAL ONE (11:18)
[2021-09-25] MEDS ORDERED: LIDOCAINE 2% 2 ML VIAL/AMP(20MG/ML) INFIL ONE (11:18)
[2021-09-25] MEDS ORDERED: DEXAMETHASONE SOD INJ 4 MG/ML VIAL ONE (11:18)
[2021-09-25] MEDS ORDERED: ROCURONIUM BROMIDE 10 MG/ML 5 ML VIAL IV ONE (11:18)
[2021-09-25] MEDS ORDERED: NEOSTIGMINE METHYLSULFATE 1 MG/ML 10ML VIAL ONE (11:19)
[2021-09-25] MEDS ORDERED: fentaNYL citrate 100 MCG/2 ML VIAL ONE (11:19)
[2021-09-25] MEDS ORDERED: MIDAZOLAM HCL 1 MG/ML 2ML VIAL ONE (11:19)
--- NOTE | 2021-09-25 12:14 | History & Physical Bridge Note ---
Date of Service September 25, 2021 History & Physical Bridge Note I have examined the patient, reviewed the History & Physical and in the interval since the performance of the History & Physical I have noted the following changes of clinical significance: no changes noted Decompression fusion L4-L5
[2021-09-25] MEDS ORDERED: ceFAZolin 2,000 MG/15 ML IV PUSH IV ONE (12:29)
[2021-09-25] MEDS ORDERED: ceFAZolin 330 MG/ML 1 GM VIAL ONE (12:32)
[2021-09-25] MEDS ORDERED: BUPIVACAINE/EPINEPHRINE 0.25% 1:200,000 30 ML VIAL ONE (12:32)
[2021-09-25] MEDS ORDERED: ceFAZolin 2000MG 2,000 MG/15 ML SYR IV ONE (12:33)
[2021-09-25] MEDS ORDERED: SCOPOLAMINE 1 MG TDSY TD ONE (12:49)
--- NOTE | 2021-09-25 12:50 | Anesthesiology Consultation ---
Date of Service September 25, 2021 Assessment & Plan (1) Encounter for pre-operative examination: Chart Review Chart Review: Acceptable Risk for Surgery History Surgery Operation Date: 09/25/21 09:00 Proposed Procedures p L4-L5 Revision Decompression Fusion - Ethan Oneal DO Height/Weight Height: 5 ft 8 in Weight: 85.9 kg Allergies Allergy/AdvReac Type Severity Reaction Status Date / Time No Known Drug Allergies Allergy Unknown NKDA Verified 09/23/21 02:28 Medications Home Medications Medication Instructions Recorded Confirmed Last Taken ascorbic acid (vitamin C) 250 mg 0 mg PO DAILY 09/23/21 09/23/21 Unknown tablet (Vitamin C) calcium 500 mg tablet 500 mg PO DAILY 09/23/21 09/23/21 Unknown duloxetine 60 mg capsule,delayed 60 mg PO CQWK 09/23/21 09/23/21 Unknown release multivitamin 1 tab PO DAILY 09/23/21 09/23/21 Unknown omeprazole 20 mg capsule,delayed 20 mg PO DAILY 09/23/21 09/23/21 Unknown release tramadol 50 mg tablet 50 mg PO Q8H PRN 09/23/21 09/23/21 Unknown vitamin B complex 1 tab PO DAILY 09/23/21 09/23/21 Unknown Active Medications Generic Name Dose Route Start Last Admin Trade Name Freq PRN Reason Stop Dose Admin Acetaminophen 650 mg 09/23/21 14:30 09/25/21 07:49 Acetaminophen 325 Mg Tab PO 10/23/21 14:29 650 mg Q6H LON Administration Calcium Carbonate 1,250 mg 09/23/21 09:00 09/25/21 07:50 Calcium Carbonate 1250mg Tab PO 10/23/21 08:59 1,250 mg DAILY LON Administration Duloxetine HCl 60 mg 09/23/21 09:00 09/25/21 07:50 Duloxetine Hcl 60 Mg Cap PO 10/23/21 08:59 60 mg QAM LON Administration Hydromorphone HCl 1 mg 09/23/21 05:55 09/24/21 20:06 Hydromorphone Inj 1 Mg/Ml Syringe IV 10/07/21 05:54 1 mg Q3H PRN Administration Severe Pain Dexamethasone 6 mg/ Syringe 1.5 mls @ 1 mls/min 09/23/21 08:00 09/25/21 07:50 IV 10/23/21 07:59 1 mls/min Q8H LON Administration Multivitamins 1 tab 09/23/21 09:00 09/25/21 07:50 Multivitamin Tab PO 10/23/21 08:59 1 tab DAILY LON Administration Ondansetron HCl 4 mg 09/23/21 05:55 09/23/21 09:30 Ondansetron Inj 2 Mg/Ml 2 Ml Vial IV 10/23/21 05:54 4 mg Q6H PRN Administration Nausea Pantoprazole Sodium 40 mg 09/23/21 09:00 09/25/21 07:50 Pantoprazole 40 Mg Tab PO 10/23/21 08:59 40 mg DAILY LON Administration Tramadol HCl 100 mg 09/23/21 05:55 09/24/21 15:05 Tramadol Hcl 50 Mg Tablet PO 10/23/21 05:54 100 mg Q6H PRN Administration Moderate Pain Vitamin B Complex 1 tab 09/23/21 09:00 09/25/21 07:50 Vitamin B Complex Tab PO 10/23/21 08:59 1 tab DAILY LON Administration NPO Date Last Intake of Fluids: 09/24/21 Time Last Intake of Fluids: 19:30 Date Last Intake of Solids: 09/24/21 Time Last Intake of Solids: 19:00 Past Medical History Medical History Depression GERD (gastroesophageal reflux disease) History of endometriosis L4-L5 disc bulge Lumbar back pain with radiculopathy affecting left lower extremity Neuropathy LEFT ARM Tinnitus, bilateral Past Family History Family History Father Family history of diabetes mellitus Other No family history of adverse response to anesthesia Past Surgical History Surgical History H/O elbow surgery RT History of colonoscopy History of endometrial ablation History of partial hysterectomy History of tooth extraction Nausea and vomiting after administration of anesthetic agent S/P cholecystectomy Social History Smoking Status: Never smoker Do You Dip or Chew Tobacco: No Hx Alcohol Use: No Alcohol type: beer alcohol intake frequency: a few times a month Hx Substance Use: No substance use type: does not use Physical Exam Vital Signs Last Vital Signs Temp 36.9 C 09/25/21 11:30 Pulse 74 09/25/21 11:30 Resp 16 09/25/21 11:30 BP 149/87 H 09/25/21 11:30 Pulse Ox 98 09/25/21 11:30 Testing Laboratory Results 09/25/21 07:07 09/25/21 07:07 Electrocardiogram Date: 11/18/22 Findings: + NSR @ (61)
[2021-09-25] MEDS ORDERED: ATROPINE SULFATE 0.1 MG/ML 10ML SYR IV PRN (12:52)
[2021-09-25] MEDS ORDERED: PROMETHAZINE HCL 12.5 MG in SODIUM CHLORIDE 0.9% 50 ML IV PRN ×2 (12:52→16:36)
[2021-09-25] MEDS ORDERED: LABETALOL HCL IV 5 MG/ML 20ML IV PRN (12:52)
[2021-09-25] MEDS ORDERED: ONDANSETRON INJ 2 MG/ML 2 ML VIAL IV PRN ×2 (12:52→16:36)
[2021-09-25] MEDS ORDERED: FLOSEAL HEMOSTATIC MATRIX 10ML TOP ONE (13:32)
--- NOTE | 2021-09-25 14:33 | Operative Report ---
Post Operative Report Pre & Post Diagnosis Operation Date: 09/25/21 09:00 Pre-Op Diagnosis: Recurrent lumbar disc herniation L4-5 Post-Op Diagnosis: Same I identified the patient and participated in the time-out.: Yes Procedure Operation Date: 09/25/21 09:00 Actual Procedures #1 revision decompression with bilateral medial facetectomies and foraminotomies L4-L5. #2 posterior spinal fusion L4-5 #3 posterior instrumentation L4-5. #4 interbody fusion L4-5 per #5 placement of Spira 14 x 26 mm cage at L4-5. #6 placement locally harvested morselized autograft in the posterior gutters. #7 placement of I factor combined with V toss in interbody space and posterior lateral gutters. Surgeon Ethan Oneal, Upsetter Helper Edwina Paulino Estimated Blood Loss 150 Findings Consistent with Post-Op Diagnosis Specimens None Indications This is a 56-year-old female who presents with above-mentioned diagnosis having severe radiculopathy and recurrent discrimination she is here for urgent decompression fusion. Description of Procedure Patient was met with identified informed consent obtained. Patient was then taken to the operative suite underwent intubation placed in a prone position on the Scott table on top of the Charlie frame. All bony prominences well-padded and eyes inspected to ensure no external pressure placed upon them. This point lumbar spine was prepped and draped no sterile fashion. Using the previous incision site sharp dissection with assistance of Bovie cautery performed down to and exposing the remaining lamina and transverse processes of L4-L5 bilaterally. From a caudal to cephalad fashion revision complete laminectomy of L4 was performed including medial facetectomies and foraminotomies. I then identified a massive recurrent disc herniation L4-5 on the left and it was removed in its entirety. Pedicle screws then placed in L4 and L5 bilaterally with assistance of fluoroscopy. Proper sized tosin was placed. Bilateral transforaminal approach and left complete discectomy L4-5 was performed endplates curetted to subcortical bleeding bone and a 14 x 26 mm spiral cage filled I factor tapped in position. The rods then compressed locked into final position bilaterally. The transverse processes of L4 and L5 burred to subcortically bone. I factor combined with V toss and locally harvested morselized autograft was placed in the posterior gutters. 15 round DAJUAN drain inserted. The incision was then closed with 1 Vicryl in the fascia 2-0 Vicryl subcutaneously and 4 Monocryl for final skin closure. Steri-Strip sterile dressings placed. Patient waken taken to PACU stable condition. Please note spinal cord monitoring was last that the procedure no changes noted. Lastly Edwina Paulino was present at the entire surgeon while the patient positioning complex portions of the surgery and final skin closure. I attest to the content of the Intraoperative Record and any orders documented therein. Any exceptions are noted below.
--- NOTE | 2021-09-25 14:37 | Fluoroscopy Report ---
FL lumbar spine 2-3V CLINICAL HISTORY: L4-5 REVISION TECHNIQUE: 2 views were obtained with the C-arm in the OR with the above procedure. Total fluoroscopy time was 15.8 seconds. Total skin dose was 13.74 mGy. Comparison: None available at the time of this dictation. FINDINGS/IMPRESSION: Intraoperative images were obtained of L4-L5 posterior fixation hardware revisio n. Please correlate with intraoperative fluoroscopy and operative report. ACT 112: Negative or not required by law. Electronically signed by: Francesco Pinon M.D. 09/25/2021 2:36 PM
[2021-09-25] MEDS: HYDROmorphone INJ 1 MG/ML SYRINGE IV PRN ×8 (15:08→15:52)
--- NOTE | 2021-09-25 16:10 | Anesthesiology Progress Note ---
Date of Service September 25, 2021 Anesthesia Post Procedure Vital Signs Vital Signs: Temp Pulse Pulse Resp BP BP Pulse Ox 09/25/21 16:05 36.9 C 73 18 155/92 H 93 09/25/21 15:55 83 17 168/86 H 95 09/25/21 15:45 72 22 162/97 H 97 09/25/21 15:35 69 15 137/86 97 09/25/21 15:25 61 17 133/72 97 09/25/21 15:15 65 17 133/75 100 09/25/21 15:05 67 12 134/78 97 09/25/21 14:55 61 15 123/82 96 09/25/21 14:49 36.5 C 62 14 131/69 96 09/25/21 11:30 36.9 C 74 16 149/87 H 98 09/25/21 08:45 36.9 C 74 16 134/78 94 09/25/21 06:21 36.8 C 91 H 16 137/80 94 Pain Intensity Left Leg: Pain Intensity: 8 Back: Pain Intensity: 2 Transfer of Care Handoff Completed per policy Notes Mental Status: alert / awake / arousable and participated in evaluation Patient Amnestic to Procedure: Yes Nausea / Vomiting: adequately controlled Pain: adequately controlled Airway Patency, RR, SpO2: stable & adequate BP & HR: stable & adequate Hydration State: stable & adequate Anesthetic Complications: no major complications apparent and Pt Satisfied with anesthetic care
[2021-09-25] MEDS ORDERED: DO NOT ADMINISTER PNEUMOCOCCAL VACCINE PRN (16:36)
[2021-09-25] MEDS ORDERED: ACETAMINOPHEN 1,000 MG/100 ML VIAL IV PRN (16:36)
[2021-09-25] MEDS ORDERED: diphenhydrAMINE Capsule 25 MG CAP PO PRN (16:36)
[2021-09-25] MEDS ORDERED: HYDROmorphone INJ 1 MG/ML SYRINGE IV PRN (16:36)
[2021-09-25] MEDS ORDERED: ACETAMINOPHEN 500 MG TAB PO PRN (16:36)
[2021-09-25] MEDS ORDERED: ALUMINUM/MAGNESIUM SUSP 30 ML UDC PO PRN (16:36)
[2021-09-25] MEDS ORDERED: ONDANSETRON 4 MG OD TAB PO PRN (16:36)
[2021-09-25] MEDS ORDERED: MAGNESIUM HYDROXIDE SUSP 30 ML UDC PO PRN (16:36)
[2021-09-25] MEDS ORDERED: LORazepam 2 MG/1 ML VIAL IV PRN (16:36)
[2021-09-25] MEDS ORDERED: FAMOTIDINE 20 MG TAB PO PRN (16:36)
[2021-09-25] MEDS ORDERED: NALOXONE HCL 0.4 MG/1 ML VIAL/CARP IV PRN (16:36)
[2021-09-25] MEDS ORDERED: SOD PHOSPHATE/SOD BIPHOSPHATE ENEMA 132 ML BTL PR PRN (16:36)
[2021-09-25] MEDS ORDERED: LACTATED RINGER'S 1,000 ML IV SCH (16:36)
[2021-09-25] MEDS ORDERED: bisacodyL 10 MG SUPP PR PRN (16:36)
[2021-09-25] MEDS ORDERED: METOCLOPRAMIDE HCL INJ 5 MG/ML 2 ML VIAL IV PRN (16:36)
[2021-09-25] MEDS ORDERED: HYDROmorphone INJ 0.5 MG/0.5 ML SYR IV PRN (16:36)
[2021-09-25] MEDS ORDERED: DO NOT ADMINISTER FLU VACCINE PRN (16:36)
[2021-09-25] MEDS ORDERED: hydrOXYzine HCl 25 MG TAB PO PRN (16:36)
[2021-09-25] MEDS ORDERED: LORazepam 0.5 MG TAB PO PRN (16:36)
[2021-09-25] MEDS: DOCUSATE SODIUM/SENNA 50/8.6MG TAB PO SCH (20:32)
[2021-09-25] MEDS: ceFAZolin 2000MG 2,000 MG/15 ML SYR IV SCH (20:32)
[2021-09-25] MEDS: oxyCODONE HCL IR 5 MG TAB (IMMEDIATE RELEASE) PO PRN (20:32)
[2021-09-26] MEDS: POLYETHYLENE (MIRALAX) 17 GM PACK PO SCH ×4 (04:54→23:06)
[2021-09-26] MEDS: ceFAZolin 2000MG 2,000 MG/15 ML SYR IV SCH (04:54)
[2021-09-26] MEDS: oxyCODONE HCL IR 5 MG TAB (IMMEDIATE RELEASE) PO PRN ×2 (04:58→21:05)
[2021-09-26] MEDS: MULTIVITAMIN TAB PO SCH (07:19)
[2021-09-26] MEDS: VITAMIN B COMPLEX TAB PO SCH (07:19)
[2021-09-26] MEDS: CALCIUM CARBONATE 1250MG TAB PO SCH (07:19)
[2021-09-26] MEDS: PANTOprazole 40 MG TAB PO SCH (07:19)
[2021-09-26] MEDS: dexAMETHasone 6 MG in SYRINGE 0 ML IV SCH (07:20)
[2021-09-26] MEDS: traMADol HCL 50 MG TABLET PO PRN ×2 (07:27→11:36)
--- NOTE | 2021-09-26 08:41 | Orthopedic Progress Note ---
Date of Service September 26, 2021 Assessment & Plan (1) Recurrent herniation of lumbar disc: Plan: Patient is POD #! s/p revision decompression and intrumented fusion lumbar spine. Patient will start physical therapy today. Continue with pain control. Continue with aggressive bowel regimen. DVT prophylaxis is in the form of teds and SCDs. Anticipate discharge home within next 24 to 48 hours. Continue to maintain DAJUAN drain. Admission and Anticipated Discharge Date Admission Date: September 25, 2021 Subjective Patient is postoperative day 1 revision decompression instrumented fusion lumbar spine. She is doing well. She had an uneventful evening. Leg pain is greatly improved compared to preoperative status. Lab values are pending. DAJUAN drain output last shift is 50 cc. Review of Systems Review of Systems: All systems reviewed & are unremarkable except as noted in HPI & below Physical Exam Physical Exam: She sitting in a chair in no acute distress Alert and oriented x3 Lumbar dressing is clean dry intact with functioning DAJUAN drain Calf soft nontender bilateral lower extremities Strength is intact bilateral lower extremities Results & Data ([facility]) Vital Signs (Past 12 Hours) Vital Signs Temp Pulse Resp BP BP Pulse Ox 09/26/21 07:53 37 C 67 18 120/78 99 09/26/21 03:12 37.0 C 82 16 131/78 96 09/25/21 23:50 37.2 C 82 16 127/79 96
--- NOTE | 2021-09-26 08:45 | Hospitalist Progress Note ---
Date of Service September 26, 2021 Assessment & Plan (1) L4-L5 disc bulge: Plan: 56 yo F with PMH of L4/L5 disc herniation s/p laminectomy 05/2021 at [facility] presenting with persistent lumbar back and LLE pain. L4-L5 disc herniation POD1 s/p revision decompression w/ fusion -Lumbar spine MRI -Disc extrusion at L4-L5. There is up to severe canal stenosis, AP diameter 5 mm -Moderate to severe right and severe left neuroforaminal stenosis. -PT/OT ordered, evaluations pending -Continue pain control postoperatively as below Pain control -Continue dexamethasone 6 mg IV daily postoperatively per orthopedics -Tylenol, oxycodone, tramadol PRN -Discontinued duloxetine Leukocytosis -WBC 16.64 today -Suspect this is secondary to steroids + postoperative state -Pt is clinically well-appearing, afebrile. I do not suspect an infection at this time -Trend CBC FENGI: Regular Code status: Full DVT ppx: SCDs Isolation: None Dispo: PCU (2) Lumbar back pain with radiculopathy affecting left lower extremity: Plan: Patient is status post laminectomy 05/2021 (3) GERD (gastroesophageal reflux disease): Plan: Continue omeprazole/pantoprazole Admission and Anticipated Discharge Date Admission Date: September 25, 2021 Supervising Physician Co-Signing Physician Notes Attending attestation Pt seen and examined in concert with Dr. Hall. In agreement with the documented findings as noted in the resident documentation with any exceptions or additions as noted here. Mild aching lower back pain at operative site, well controlled at present. No sensory changes, bowel/bladder changes. +/- flatus. VS reviewed. On examination, S1/S2 nl RRR no MCG. CTAB. Abd NT/ND BS+ve. Distal LE 5/5 bilaterally Intractable lower back pain 2/2 L4/5 disc herniation s/p revision of laminectomy, POD 1 - ortho spine and PT/OT consult - pain control with scaled pain regimen, duloxetine. Else see resident documentation as noted. Subjective No acute events overnight. Pt was evaluated sitting in chair today. She was very happy about getting the surgery and denies any leg pain. Only endorsing some moderate soreness in her back where the operative site was. States pain medication has helped with the soreness. Denies any weakness/numbness, bowel/bladder incontinence. Has been able to ambulate in room with walker. Feels well. Review of Systems Review of Systems: Per subjective Physical Exam Physical Exam: General: pleasant, no acute distress HEENT--moist mucous membranes and oropharynx dry. Neck--supple. No JVD. No bruits. Thyroid normal, trachea midline, no adenopathy. Heart--normal S1 and S2. No murmurs, rubs or gallops. Lungs--clear bilaterally, no respiratory distress, no accessory muscle use. Abdomen--normal bowel sounds and soft. Nontender. Nondistended, no hernias or masses, no organomegaly. Extremities--no cyanosis or clubbing. No edema. There are good distal pulses bilaterally. Dermatologic--normal skin turgor, normal color, no abnormal lymph nodes, no rash. Neurologic--5/5 strength of b/l LE including dorsiflexion/plantarflexion, no sensory deficit of b/l LE, negative straight leg raise tests b/l, DTRs 2+ b/l LE, gait symmetric while assisted with walker Results & Data Results & Data ([facility]) Vital Signs (Past 12 Hours) Vital Signs Temp Pulse Resp BP BP Pulse Ox 09/26/21 07:53 37 C 67 18 120/78 99 09/26/21 03:12 37.0 C 82 16 131/78 96 09/25/21 23:50 37.2 C 82 16 127/79 96 Resident Activity Tracking Resident Involvement: Resident Care Provided Care Provided: Adult [facility] Medicine
[2021-09-26 09:36] LABS: Basophils # (auto) 0.01 K/uL (0-0.2); Basophils % (auto) 0.1 %; Hematocrit (blood only) 39.2 % (37-47); Immature Granulocytes # (auto) 0.09 K/uL (0.00-0.02); Immature Granulocytes % (auto) 0.5 %; Lymphocytes # (auto) 1.04 K/uL (1.2-3.4); Lymphocytes % (auto) 6.3 %; Mean Corpuscular Hemoglobin 30.9 pg (25-34); Mean Corpuscular Hgb Conc 33.2 g/dL (32-36); Mean Corpuscular Volume 93.1 fL (80-100); Mean Platelet Volume 11.8 fL (7.4-10.4); Monocytes # (auto) 1.32 K/uL (0.11-0.59); Monocytes % (auto) 7.9 %; Neutrophils # (auto) 14.18 K/uL (1.4-6.5); Neutrophils % (auto) 85.2 %; Platelet Count 195 K/uL (130-400); RDW Standard Deviation 44.3 fL (36.4-46.3); Red Blood Count 4.21 M/uL (4.2-5.4); White Blood Count 16.64 K/uL (4.8-10.8)
[2021-09-26 10:02] LABS: Anion Gap 9 (3-11); BUN Creatinine Ratio 22.8 (10-20); Blood Urea Nitrogen 21 mg/dl (6-23); Calcium 9.3 mg/dl (8.5-10.1); Carbon Dioxide 28 mmol/L (21-32); Chloride 97 mmol/L (98-107); Creatinine Clr Calc Pharmacy 78.4 ml/min; Est GFR (African American) 80.7 ml/min; Est GFR (Non-African American) 69.6 ml/min; Glucose 207 mg/dl (70-99(Fasting)); Sodium 134 mmol/L (136-145)
[2021-09-26] MEDS ORDERED: LORazepam 0.5 MG in SYRINGE 0.75 ML IV PRN (17:16)
[2021-09-26] MEDS: DOCUSATE SODIUM/SENNA 50/8.6MG TAB PO SCH (21:05)
[2021-09-26] MEDS ORDERED: LORazepam 0.5 MG in SYRINGE 0.25 ML IV PRN (23:20)
[2021-09-27] MEDS: POLYETHYLENE (MIRALAX) 17 GM PACK PO SCH ×2 (05:43→12:36)
[2021-09-27] MEDS: oxyCODONE HCL IR 5 MG TAB (IMMEDIATE RELEASE) PO PRN ×2 (05:43→09:32)
[2021-09-27 07:11] LABS: Hemoglobin 12.2 g/dL (12.0-16.0); Mean Corpuscular Hemoglobin 30.7 pg (25-34); Mean Corpuscular Volume 93.2 fL (80-100); Mean Platelet Volume 11.3 fL (7.4-10.4); Platelet Count 159 K/uL (130-400); RDW Coefficient of Variation 12.6 % (11.5-14.5); RDW Standard Deviation 43.1 fL (36.4-46.3); Red Blood Count 3.97 M/uL (4.2-5.4); White Blood Count 9.16 K/uL (4.8-10.8)
[2021-09-27 07:39] LABS: BUN Creatinine Ratio 19.5 (10-20); Calcium 8.8 mg/dl (8.5-10.1); Creatinine Clr Calc Pharmacy 87.9 ml/min; Est GFR (African American) 92.7 ml/min
--- NOTE | 2021-09-27 08:05 | Discharge Summary ---
Date of Service September 27, 2021 Admission HPI Per Admitting Provider The patient is a 56-year-old female with a past medical history including GERD, SNHL, gluteus minimus tendon tear, cervical radiculopathy, left hip trochanteric bursitis, gluteal tendinitis of left buttock, and status post lumbar laminectomy at L4/L5 on 05/17/2021 at [facility]. Patient reports that her symptoms did not appreciably improve, and in fact 2 weeks after surgery and since that time, her symptoms have gradually worsened. She has been relatively incapacitated, primarily sitting on her chair for most of the day at home. She reports having undergone 3 courses of prednisone without significant impr ovement. She did have 1 pain management ejection sometime in June. She did undergo an MRI on 06/28/2021, which showed a bulging disc with compression of exiting nerve root at L4/L5. She presents to the emergency department this evening, due to inability to tolerate the pain any longer Admission Exam Per Admitting Provider The patient is awake, alert and oriented 3, well developed and well nourished, normocephalic and atraumatic, lying in bed and in no acute distress. HEENT--PERRL, EOMI, mucous membranes and oropharynx dry. Neck--supple. No JVD. No bruits. Thyroid normal, trachea midline, no adenopathy. Heart--normal S1 and S2. No murmurs, rubs or gallops. Lungs--clear bilaterally, no respiratory distress, no accessory muscle use. Abdomen--normal bowel sounds and soft. Nontender. Nondistended, no hernias or masses, no organomegaly. Extremities--no cyanosis or clubbing. No edema. There are good distal pulses bilaterally. Dermatologic--normal skin turgor, normal color, no abnormal lymph nodes, no rash. Neurologic--cranial nerves II through XII grossly intact. Rheumatologic--limited exam due to low back and left leg pain Psychiatric--normal affect. Principal Diagnosis Lumbar disc herniation Discharge Exam General: pleasant, no acute distress HEENT--moist mucous membranes and oropharynx dry. Neck--supple. No JVD. No bruits. Thyroid normal, trachea midline, no adenopathy. Heart--normal S1 and S2. No murmurs, rubs or gallops. Lungs--clear bilaterally, no respiratory distress, no accessory muscle use. Abdomen--normal bowel sounds and soft. Nontender. Nondistended, no hernias or masses, no organomegaly. Extremities--no cyanosis or clubbing. No edema. There are good distal pulses bilaterally. Dermatologic--normal skin turgor, normal color, no abnormal lymph nodes, no rash. Neurologic--5/5 strength of b/l LE including dorsiflexion/plantarflexion, no sensory deficit of b/l LE, negative straight leg raise tests b/l, DTRs 2+ b/l LE, gait symmetric while assisted with walker Discharge Data Allergies Allergy/AdvReac Type Severity Reaction Status Date / Time No Known Drug Allergies Allergy Unknown NKDA Verified 09/23/21 02:28 Consultations 09/23/21 03:46 ED Decision to Admit Stat 09/23/21 05:03 Consult Orthopedic Surgery Routine Procedures Performed Operation Date: 09/25/21 09:00 Actual Procedures p L4-L5 Revision Decompression Fusion - Ethan Oneal DO Ordered Studies 09/23/21 08:30 MR lumbar spine wo/w con Routine 09/25/21 12:00 FL lumbar spine 2-3V Routine Hospital Course (1) L4-L5 disc bulge: 56 yo F with PMH of L4/L5 disc herniation s/p laminectomy 05/2021 at [facility] presenting with persistent lumbar back and LLE pain. L4-L5 disc herniation POD2 s/p revision decompression w/ fusion -Treated with IV steroids/dexamethasone for pain relief, steroids discontinued on discharge -Lumbar spine MRI -Disc extrusion at L4-L5. There is up to severe canal stenosis, AP diameter 5 mm -Moderate to severe right and severe left neuroforaminal stenosis. -Pt underwent uncomplicated L4-L5 revision decompression with fusion on 09/25 with complete resolution of radicular pain afterward -Pt discharged with oxycodone, tramadol for PRN pain relief. Only experiencing back soreness at time of discharge -Remained hemodynamically stable during stay and unremarkable postoperative recovery -Ambulating with walker without difficulty on day of discharge -F/u with orthopedics in 2 weeks after discharge Leukocytosis (resolved) -WBC 16.64 to 9.16, -Suspect this was secondary to steroids + postoperative state -Pt remained afebrile, clinically well-appearing (2) Lumbar back pain with radiculopathy affecting left lower extremity: Patient is status post laminectomy 05/2021 (3) GERD (gastroesophageal reflux disease): Continue omeprazole/pantoprazole Total Time Total Time Spent Total Time Spent (In Minutes): 30 Discharge Plan Discharge Items Patient Disposition: Home - Self-Care Reason For Visit: LBP, LLE RADICULOPATHY Discharge Diagnosis: Recurrent lumbar disc herniation with radiculopathy Activity: As commented below Non-emergency contact: Primary Care Provider Call non-emergency contact if: you have any medication questions Follow-up/Referrals: Ethan Oneal DO [Surgeon] - Merna Slater MD [Primary Care Provider] - 09/29/21 4:00 pm (APPOINTMENT WITH DR ENGEL) Diet: Regular Addtl Attending Provider Instructions: You were admitted to the hospital for lower back pack and radiculopathy due to L4-L5 disc herniation. You were treated with decompression/fusion surgery. ACTIVITY RECOMMENDATIONS: SELF CARE INSTRUCTIONS AFTER THORACIC/LUMBAR FUSIONS 1. You may walk to your tolerance. It is good exercise for your legs and back. Expect some back and intermittent leg aches and pains. 2. You may perform "counter-top" level activities (make a sandwich, ej with a project, etc.). 3. No bending or lifting of more than 10 pounds or back twisting of any nature (roll like a log when turning in bed). 4. You may ride in a car for 20-30 minutes at a time. No driving until after your first visit with your doctor. 5. Frequent changes of position and restricting sitting to 30 minutes at a time will help limit the amount of back spasms and stiffness you may experience. 6. You may discontinue the use of ambulatory aids (cane, crutches, etc.) once your strength and confidence allow. 7. You may pr intern the shower and let water strike your incision when you arrive home at least once daily. Do not take a tub bath, sit in a hot tub or go into a swimming pool until after your first recheck in the office. SPECIAL CARE INSTRUCTIONS: VERY IMPORTANT TO READ AND REVIEW A. Your surgical incision has been closed with a cosmetic suture under the skin that will dissolve in about 6 weeks. In 14 days, you can use a pair of clean scissors and cut the suture that is left outside of the skin at the ends of your incision. 1. The small skin tapes can be removed 7 days after surgery if they have not fallen off by that point. 2. You may keep the wound open to air as much as possible to promote healing after post-op day number 5 unless told otherwise by your doctor. 3. If you think the wound looks like it is becoming infected (redness or worsening drainage) and/or you are experiencing fever, chill or worsening back pain and muscle spasms, contact the office so that we may evaluate you as soon as possible. B. Complications are uncommon, but please contact us if you have any signs or symptoms of: 1. wound infection (fever higher than 102.5 degrees F, redness, separation of wound, drainage, or increasing pain from the incision) 2. blood clots in legs (pain, swelling, redness and warmth in legs) 3. urinary tract infection (fever higher than 102.5 degrees F, burning upon urination or increased frequency of urination) 4. nerve problems (inability to walk on your toes or heels, numbness, loss of bowel or bladder control) 5. any other symptoms that concern you C. Please call the office at if you have any concerns or questions about your operation or recovery. D. No smoking! Smoking drastically decreases the chance of a solid fusion. E. Do not take any anti-inflammatory medications (Indocin, Advil, Motrin, Aspirin, Naprosyn, etc.) as these may inhibit the chance of a solid fusion. Tylenol is okay to take for pain. MANAGING PAIN AFTER SPINAL SURGERY 1. Narcotic medication is intended for short-term use and will be provided for surgical pain. Surgical pain usually lasts for a period of 4-6 weeks. Narcotic medication includes Percocet, Vicodin, Darvocet, Tylenol #3 or Lortab. 2. Longer-term pain is more appropriately treated with non-narcotic medication such as Tylenol ES. 3. Muscle spasm is not appropriately treated with narcotics. Muscle relaxers such as Soma, Flexeril or Skelaxin can be used along with Tylenol ES. 4. Remember that we all live with some "aches and pains". This is not unusual or uncommon after an injury or as we get older. a. Back pain is expected and may include muscle spasms for 4 to 6 weeks after surgery. The pain should gradually improve. If the pain worsens for no apparent reason, please contact the office. b. Intermittent leg pain may also be experienced and should not be concerned about unless it worsens for no apparent reason. If so, please contact the office. 5. We will provide appropriate medication within the normal guidelines of their prescribed use. We will also be very cautious and aware of potential abuse and extended duration of patients' medication needs. a. Pain medications are for your comfort and to assist with sleep and rest so that the tissue can heal. They are not provided in order to return to normal activity and should not be used through the day. To do so or worsening pain at night can result from ongoing tissue damage and development of tolerance to the prescribed medicine. 6. Please allow 2-3 days to process refills. Prescriptions will not be mailed but must be picked up at the office. FOLLOW UP VISIT: Keep your scheduled follow-up appointment. Any questions, please call the office at . Pending Studies at Discharge: No Stand-Alone Forms: [facility], Opioid Pain Management, Smoking Cessation Medications and DC Order Prescriptions: New tramadol 50 mg tablet 50 mg PO Q6H PRN (Reason: pain, moderate) Qty: 30 RF: 0 oxycodone 5 mg tablet 5 mg PO Q6H PRN (Reason: pain, severe) Qty: 30 RF: 0 Continued multivitamin Tablet 1 tab PO DAILY RF: 0 calcium 500 mg Tablet 500 mg PO DAILY RF: 0 tramadol 50 mg Tablet 50 mg PO Q8H PRN (Reason: Pain) RF: 0 ascorbic acid (vitamin C) [Vitamin C] 250 mg Tablet 0 mg PO DAILY RF: 0 omeprazole 20 mg capsule,delayed release(DR/EC) 20 mg PO DAILY RF: 0 vitamin B complex Tablet 1 tab PO DAILY RF: 0 duloxetine 60 mg capsule,delayed release(DR/EC) 60 mg PO CQWK RF: 0 Discharge Orders: Discharge Order (Routine); Ordered 09/27/21 Ordered By: Jesus Cobb/Other Patient Handouts: Lumbar Fusion Dc Admission Data Admit Date/Time: 09/25/21 08:39 Attending Provider: Yrn Figueroa Admit Provider: Rasheed Beckham Primary Care Provider: Merna Slater Other Providers: Rasheed Beckham ; Ethan Oneal Other Interventions: Discharge Summary Assessment (RN) Last Done: 09/27/21 12:30 Supervising Physician Co-Signing Physician Notes Attending attestation Pt seen and examined in concert with Dr. Hall. In agreement with the documented findings as noted in the resident documentation with any exceptions or additions as noted here. Minimal complaint of lower back pain, paresthesias or mobility changes. Worked well with PT. VS reviewed. On examination, S1/S2 nl RRR no MCG. CTAB. Abd NT/ND BS+ve. Distal LE 5/5 bilaterally Intractable lower back pain 2/2 L4/5 disc herniation s/p revision of laminectomy - ortho spine and PT/OT consult - pain control with scaled pain regimen, duloxetine for home. Else see resident documentation as noted. Total attending physician time spent on this patient's care on the day of discharge: 25 minutes. Resident Activity Tracking Resident Involvement: Resident Care Provided Care Provided: Adult Hospital Medicine
--- NOTE | 2021-09-27 08:24 | Discharge Summary ---
Date of Service September 27, 2021 Admission HPI Per Admitting Provider The patient is a 56-year-old female with a past medical history including GERD, SNHL, gluteus minimus tendon tear, cervical radiculopathy, left hip trochanteric bursitis, gluteal tendinitis of left buttock, and status post lumbar laminectomy at L4/L5 on 05/17/2021 at [facility]. Patient reports that her symptoms did not appreciably improve, and in fact 2 weeks after surgery and since that time, her symptoms have gradually worsened. She has been relatively incapacitated, primarily sitting on her chair for most of the day at home. She reports having undergone 3 courses of prednisone without significant impr ovement. She did have 1 pain management ejection sometime in June. She did undergo an MRI on 06/28/2021, which showed a bulging disc with compression of exiting nerve root at L4/L5. She presents to the emergency department this evening, due to inability to tolerate the pain any longer Principal Diagnosis Recurrent lumbar disc herniation with radiculopathy Discharge Data Allergies Allergy/AdvReac Type Severity Reaction Status Date / Time No Known Drug Allergies Allergy Unknown NKDA Verified 09/23/21 02:28 Consultations 09/23/21 03:46 ED Decision to Admit Stat 09/23/21 05:03 Consult Orthopedic Surgery Routine Procedures Performed Operation Date: 09/25/21 09:00 Actual Procedures p L4-L5 Revision Decompression Fusion - Ethan Oneal DO Ordered Studies 09/23/21 08:30 MR lumbar spine wo/w con Routine 09/25/21 12:00 FL lumbar spine 2-3V Routine Hospital Course (1) Recurrent herniation of lumbar disc: Patient was admitted through the ER with severe left leg pain. Updated imaging demonstrate evidence of recurrent disc herniation at L4-L5. She ultimately underwent revision decompression fusion. She tolerates well second orthopedic for postoperative. Postop day 1 she was up and ambulating progressed to postop day #2. Pain well controlled excellent strength testing DAJUAN drain decreasing probably. Subsequent discharge home. Discharge orders instructions from the chart for further review. Total Time Total Time Spent Total Time Spent (In Minutes): 20 minutes Discharge Plan Discharge Items Patient Disposition: Home - Self-Care Reason For Visit: LBP, LLE RADICULOPATHY Discharge Diagnosis: Recurrent lumbar disc herniation with radiculopathy Activity: As commented below Non-emergency contact: Primary Care Provider Call non-emergency contact if: you have any medication questions Follow-up/Referrals: Merna Slater MD [Primary Care Provider] - Diet: Regular Addtl Attending Provider Instructions: ACTIVITY RECOMMENDATIONS: SELF CARE INSTRUCTIONS AFTER THORACIC/LUMBAR FUSIONS 1. You may walk to your tolerance. It is good exercise for your legs and back. Expect some back and intermittent leg aches and pains. 2. You may perform "counter-top" level activities (make a sandwich, ej with a project, etc.). 3. No bending or lifting of more than 10 pounds or back twisting of any nature (roll like a log when turning in bed). 4. You may ride in a car for 20-30 minutes at a time. No driving until after your first visit with your doctor. 5. Frequent changes of position and restricting sitting to 30 minutes at a time will help limit the amount of back spasms and stiffness you may experience. 6. You may discontinue the use of ambulatory aids (cane, crutches, etc.) once your strength and confidence allow. 7. You may advertising director the shower and let water strike your incision when you arrive home at least once daily. Do not take a tub bath, sit in a hot tub or go into a swimming pool until after your first recheck in the office. SPECIAL CARE INSTRUCTIONS: VERY IMPORTANT TO READ AND REVIEW A. Your surgical incision has been closed with a cosmetic suture under the skin that will dissolve in about 6 weeks. In 14 days, you can use a pair of clean scissors and cut the suture that is left outside of the skin at the ends of your incision. 1. The small skin tapes can be removed 7 days after surgery if they have not fallen off by that point. 2. You may keep the wound open to air as much as possible to promote healing after post-op day number 5 unless told otherwise by your doctor. 3. If you think the wound looks like it is becoming infected (redness or worsening drainage) and/or you are experiencing fever, chill or worsening back pain and muscle spasms, contact the office so that we may evaluate you as soon as possible. B. Complications are uncommon, but please contact us if you have any signs or symptoms of: 1. wound infection (fever higher than 102.5 degrees F, redness, separation of wound, drainage, or increasing pain from the incision) 2. blood clots in legs (pain, swelling, redness and warmth in legs) 3. urinary tract infection (fever higher than 102.5 degrees F, burning upon urination or increased frequency of urination) 4. nerve problems (inability to walk on your toes or heels, numbness, loss of bowel or bladder control) 5. any other symptoms that concern you C. Please call the office at if you have any concerns or questions about your operation or recovery. D. No smoking! Smoking drastically decreases the chance of a solid fusion. E. Do not take any anti-inflammatory medications (Indocin, Advil, Motrin, Aspir in, Naprosyn, etc.) as these may inhibit the chance of a solid fusion. Tylenol is okay to take for pain. MANAGING PAIN AFTER SPINAL SURGERY 1. Narcotic medication is intended for short-term use and will be provided for surgical pain. Surgical pain usually lasts for a period of 4-6 weeks. Narcotic medication includes Percocet, Vicodin, Darvocet, Tylenol #3 or Lortab. 2. Longer-term pain is more appropriately treated with non-narcotic medication such as Tylenol ES. 3. Muscle spasm is not appropriately treated with narcotics. Muscle relaxers such as Soma, Flexeril or Skelaxin can be used along with Tylenol ES. 4. Remember that we all live with some "aches and pains". This is not unusual or uncommon after an injury or as we get older. a. Back pain is expected and may include muscle spasms for 4 to 6 weeks after surgery. The pain should gradually improve. If the pain worsens for no apparent reason, please contact the office. b. Intermittent leg pain may also be experienced and should not be concerned about unless it worsens for no apparent reason. If so, please contact the office. 5. We will provide appropriate medication within the normal guidelines of their prescribed use. We will also be very cautious and aware of potential abuse and extended duration of patients' medication needs. a. Pain medications are for your comfort and to assist with sleep and rest so that the tissue can heal. They are not provided in order to return to normal activity and should not be used through the day. To do so or worsening pain at night can result from ongoing tissue damage and development of tolerance to the prescribed medicine. 6. Please allow 2-3 days to process refills. Prescriptions will not be mailed but must be picked up at the office. FOLLOW UP VISIT: Keep your scheduled follow-up appointment. Any questions, please call the office at . Pending Studies at Discharge: No Stand-Alone Forms: My [facility] Airplane, Smoking Cessation Medications and DC Order Prescriptions: New tramadol 50 mg tablet 50 mg PO Q6H PRN (Reason: pain, moderate) Qty: 30 RF: 0 oxycodone 5 mg tablet 5 mg PO Q6H PRN (Reason: pain, severe) Qty: 30 RF: 0 Continued multivitamin Tablet 1 tab PO DAILY RF: 0 calcium 500 mg Tablet 500 mg PO DAILY RF: 0 tramadol 50 mg Tablet 50 mg PO Q8H PRN (Reason: Pain) RF: 0 ascorbic acid (vitamin C) [Vitamin C] 250 mg Tablet 0 mg PO DAILY RF: 0 omeprazole 20 mg capsule,delayed release(DR/EC) 20 mg PO DAILY RF: 0 vitamin B complex Tablet 1 tab PO DAILY RF: 0 duloxetine 60 mg capsule,delayed release(DR/EC) 60 mg PO CQWK RF: 0 Discharge Orders: Discharge Order (Routine); Ordered 09/27/21 Ordered By: Ethan Oneal Admission Data Admit Date/Time: 09/25/21 08:39 Attending Provider: Yrn Figueroa Admit Provider: Rasheed Beckham Primary Care Provider: Merna Slater Other Providers: Rasheed Beckham ; Ethan Oneal
[2021-09-27] MEDS: CALCIUM CARBONATE 1250MG TAB PO SCH (09:33)
[2021-09-27] MEDS: dexAMETHasone 6 MG in SYRINGE 0 ML IV SCH (09:33)
[2021-09-27] MEDS: MULTIVITAMIN TAB PO SCH (09:33)
[2021-09-27] MEDS: VITAMIN B COMPLEX TAB PO SCH (09:34)
[2021-09-27] MEDS: PANTOprazole 40 MG TAB PO SCH (09:34)
== END 2021-09-27 13:16 | disposition home or self-care (01) | DRG 455 ==
LOC: 3E 01:37 → ED 01:37 → SUATTDRO 05:03 → 3E 05:26
DX: M54.16 Radiculopathy, lumbar region; F32.A Depression, unspecified; G62.9 Polyneuropathy, unspecified; H93.13 Tinnitus, bilateral; K21.9 Gastro-esophageal reflux disease without esophagitis; Z90.710 Acquired absence of both cervix and uterus; M51.26 Other intervertebral disc displacement, lumbar region; H90.3 Sensorineural hearing loss, bilateral; Z90.49 Acquired absence of other specified parts of digestive tract

== ENCOUNTER 2024-05-04 12:43 | Inpatient (IN) ==
[2024-05-04] MEDS: oxyCODONE HCL IR 5 MG TAB (IMMEDIATE RELEASE) PO STA ×2 (13:19→14:14)
[2024-05-04] MEDS: LIDOCAINE 5% 1 PATCH TD STA (13:19)
[2024-05-04] MEDS: KETOROLAC TROMETHAMINE 60 MG/2 ML VIAL IM STA (13:19)
[2024-05-04] MEDS: dexAMETHasone**PF** 10 MG/ML VIAL IM ONE (14:14)
--- NOTE | 2024-05-04 14:15 | XRay Report ---
XR lumbar spine 2-3V CLINICAL HISTORY: Low back pain. COMPARISON STUDY: Lumbar spine MRI and radiographs September 23, 2021. Fluoroscopic images of the lumbar spine September 25, 2021. FINDINGS: Cholecystectomy clips are incidentally noted. There is mild lumbar spine with levoscoliosis . There are postoperative findings consistent with L4-L5 discectomy with interbody spacer placement, posterior decompression and bilateral pedicle screw fusion. Hardware is intact. There are no lumbar s pine fractures. There is moderate multilevel disc space narrowing within the lumbar spine. IMPRESSION: 1. No lumbar spine fractures. 2. Status post L4-L5 decompression and fusion. Hardware intact. 3. Moderate degenerative changes within the lumbar spine. ACT 112: Negative or not required by law. Electronically signed by: Umair Sosa M.D. 05/04/2024 2:14 PM
--- NOTE | 2024-05-04 14:51 | XRay Report ---
XR thoracic spine 3V routine CLINICAL HISTORY: back pain TECHNIQUE: 3 views of the thoracic spine were obtained. Comparison: None available at the time of this dictation. FINDINGS: No fractures or subluxations are identified. Vertebral body heights and disc spaces are well maintain ed. Alignment appears unremarkable. Prevertebral soft tissues are within normal limits. IMPRESSION: No acute fracture or subluxation. ACT 112: Negative or not required by law. Electronically signed by: Francesco Pinon M.D. 05/04/2024 2:49 PM
--- NOTE | 2024-05-04 15:10 | Emergency Department Note ---
ED Provider Note History of Present Illness Chief Complaint: Back Injury/Pain Stated Complaint: BACK PAIN Time Seen by Provider: 05/04/24 13:14 Source: patient Mode of arrival: ambulatory Limitations: no limitations Patient is a 59-year-old female that presents to the emergency department with complaints of back pain. Patient states that she went down a slide with her grandson on Saturday and has had worsening pain since. Patient notes that the pain today is so severe that she is not able to ambulate as easily and the pain is radiating down into her hip. Patient notes that she has had previous fusion with Dr. Oneal in 2021. Patient states that she has tried her muscle relaxer and [id number] pain medications at home with no relief of her pain. Patient denies any loss of bladder or bowel control. Patient notes some intermittent tingling going down her legs. Home Medications Medication Instructions Recorded Confirmed Type omeprazole 20 mg capsule,delayed 40 mg PO DAILY 09/23/21 05/04/24 History release Vitamin D3 1 cap PO DAILY 05/04/24 05/04/24 History duloxetine 30 mg capsule,delayed 30 mg PO DAILY 05/04/24 05/04/24 History release duloxetine 60 mg capsule,delayed 60 mg PO DAILY 05/04/24 05/04/24 History release Allergies Allergy/AdvReac Type Severity Reaction Status Date / Time No Known Drug Allergies Allergy Unknown NKDA Verified 01/23/22 15:14 Gadolinium-Containing Allergy Vomiting Verified 01/23/22 15:14 Contrast Medi Past Med/Surg History Problem List Dizziness Recurrent herniation of lumbar disc Left lumbar radiculopathy (Acute) Intractable low back pain (Acute) Lumbar back pain with radiculopathy affecting left lower extremity L4-L5 disc bulge Tinnitus, bilateral H/O bursectomy S/p L hip endoscopic bursectomy Encounter for pre-operative examination GERD (gastroesophageal reflux disease) Gluteal tendinitis of left buttock Trochanteric bursitis of left hip Cervical radicular pain Cervical pain Labral tear of hip joint Tear of gluteus minimus tendon SNHL (sensorineural hearing loss) H/O gastroesophageal reflux (GERD) Medical History Depression Neuropathy LEFT ARM History of endometriosis Surgical History Nausea and vomiting after administration of anesthetic agent History of partial hysterectomy History of endometrial ablation History of colonoscopy History of tooth extraction H/O elbow surgery RT S/P cholecystectomy Family History Father Family history of diabetes mellitus Hypertension Sister Breast cancer Other No family history of adverse response to anesthesia No family history of bleeding disorder Social History Smoking Status: Never smoker Second Hand Exposure: No; Do You Dip or Chew Tobacco: No; Hx Alcohol Use: Yes Alcohol type: beer Alcohol Intake Frequency Comment: socially Hx Substance Use: No Preferred Language: Mongolian Communication Ability: Effective Regional Planner Required: No Beliefs That Will Affect Care: None marital status: Current Living Situation: Spouse and Family current occupational status: unemployed Feels Safe at Home: Yes Assistive Devices: Walker Physical Exam Vital Signs Vital Signs - 24 hr 05/04/24 12:51 05/04/24 15:59 05/04/24 16:19 Temperature 36.8 C Temperature Source Temporal Artery Scan Pulse Rate 74 Pulse Rate [Left Finger] 79 87 Respiratory Rate 22 18 18 Respiratory Effort / Characteristics Non-Labored Spontaneous Non-Labored Respiratory Depth Normal Normal Respiratory Pattern Regular Blood Pressure 133/66 Blood Pressure [Left Arm] 138/93 154/69 H Blood Pressure Mean 88 Blood Pressure Mean [Left Arm] 108 97 Blood Pressure Position Sitting Pulse Oximetry 100 100 98 Oxygen Delivery Method Room Air Room Air Room Air Sepsis Recent Fever Within 48 Hours No Sepsis New/Unexplained Change in Mental Status No Sepsis Action Taken by Nursing No Action Required VITAL SIGNS - Vital signs and nursing notes were reviewed. GENERAL -59-year-old female appearing her stated age and in noticeable discomfort throughout the exam. NECK - FROM of the cervical spine. ABDOMEN - Abdominal contour without pulsations or visible masses. BS normoactive all four quadrants. MUSCULOSKELETAL - ROM of the lumbar spine region was limited due to discomfort. No step-off deformities were palpated down the cervical, thoracic, and lumbar spines. Increased tenderness to Palpation experienced at the level of the lumbar spine. NEUROLOGIC - REFLEXES: +3/4 patellar reflexes B/L, +3/4 Achilles reflexes B/L. SENSORY: Spinothalamic tract was found to be intact with ability to discriminate sharp versus dull sensation at the level of hip joint down do the great toe. No sensory defects of the dorsal column were appreciated utilizing light touch for evaluation. Patient does note some intermittent bouts of tingling. CEREBELLAR: Pt able to perform rapid alternating movements of the feet. EXTREMITIES - Range of Motion - Pt able to perform straight leg raises bilaterally but with increased pain. Pt had +5 strength appreciated bilaterally in the lower extremities against examiner's resistance. VASCULAR - Capillary refill of the great toe was brisk. No mottling or blanching of the extremities present. +3/5 dorsalis pedis pulses palpated bilaterally. Course Administered Medications Discontinued Medications Dexamethasone Sodium Phosphate (DexamethasonePf 10 Mg/Ml Vial) 10 mg IM NOW ONE Stop: 05/04/24 14:05 Last Admin: 05/04/24 14:14 Dose: 10 mg Documented By: FABIOLA Ketorolac Tromethamine (Ketorolac Tromethamine 60 Mg/2 Ml Vial) 30 mg IM NOW STA Stop: 05/04/24 13:16 Last Admin: 05/04/24 13:19 Dose: 30 mg Documented By: FABIOLA Lidocaine (Lidocaine 5% 1 Patch) 1 patch TD NOW STA Stop: 05/04/24 13:16 Last Admin: 05/04/24 13:19 Dose: 1 patch Documented By: FABIOLA Morphine Sulfate (Morphine Sulfate 4 Mg/Ml 1 Ml Carp\Vial) 4 mg IV NOW STA Stop: 05/04/24 15:39 Last Admin: 05/04/24 15:55 Dose: 4 mg Documented By: NICKY Morphine Sulfate (Morphine Sulfate 4 Mg/Ml 1 Ml Carp\Vial) 4 mg IV NOW STA Stop: 05/04/24 16:12 Last Admin: 05/04/24 16:19 Dose: 4 mg Documented By: NICKY Ondansetron HCl (Ondansetron Inj 2 Mg/Ml 2 Ml Vial) 4 mg IV NOW STA Stop: 05/04/24 16:12 Last Admin: 05/04/24 16:19 Dose: 4 mg Documented By: NICKY Oxycodone HCl (Oxycodone Hcl Ir 5 Mg Tab (Immediate Release)) 5 mg PO NOW STA Stop: 05/04/24 13:16 Last Admin: 05/04/24 13:19 Dose: 5 mg Documented By: FABIOLA Oxycodone HCl (Oxycodone Hcl Ir 5 Mg Tab (Immediate Release)) 5 mg PO NOW STA Stop: 05/04/24 14:05 Last Admin: 05/04/24 14:14 Dose: 5 mg Documented By: FABIOLA Medical Decision Making Differential Diagnosis In the evaluation and treatment of this patient the following differential diagnoses were considered: Cauda equina syndrome, discitis, HNP, sciatica, worsening degenerative disc disease, musculoskeletal strain, lumbar fracture, lumbar dislocation, lumbar subluxation, spondylolisthesis, spondylosis, or compression fracture. Medical Records Attestation: I reviewed the patient's medical records. Home Medications was personally reviewed by me Laboratory Data Attestation: I reviewed the patient's lab results. 05/04/24 15:56 05/04/24 15:56 Lab Results 05/04/24 Range/Units 15:56 WBC 11.12 H (4.8-10.8) K/ul RBC 4.57 (4.20-5.40) M/uL Hgb 13.7 (12.0-16.0) g/dl Hct 40.8 (37.0-47.0) % MCV 89.3 (80.0-100.0) fL MCH 30.0 (25.0-34.0) pg MCHC 33.6 (32.0-36.0) g/dL RDW Std Deviation 40.5 (36.4-46.3) fL RDW Coeff of Phyllis 12.3 (11.5-14.5) % Plt Count 188 (130-400) K/uL MPV 11.3 (9.4-12.4) fL Immature Gran % (Auto) 0.4 % Neut % (Auto) 90.4 % Lymph % (Auto) 7.0 % Oliver % (Auto) 1.8 % Eos % (Auto) 0.1 % Baso % (Auto) 0.3 % Neut # (Auto) 10.05 H (1.40-6.50) K/uL Lymph # (Auto) 0.78 L (1.20-3.40) K/uL Oliver # (Auto) 0.20 (0.11-0.59) K/uL Eos # (Auto) 0.01 (0.00-0.50) K/uL Baso # (Auto) 0.03 (0.00-0.20) K/uL Immature Gran # (Auto) 0.05 (0.01-0.20) K/uL Sodium 136 (136-145) mmol/L Potassium 3.6 (3.5-5.1) mmol/L Chloride 100 (98-107) mmol/L Carbon Dioxide 28 (21-32) mmol/L Anion Gap 8 (3-11) BUN 22 (6-23) mg/dl Creatinine 0.86 (0.6-1.2) mg/dl Est Cr Clr Drug Dosing 71.1 ml/min eGFR 77.77 BUN/Creatinine Ratio 25.6 H (10-20) Glucose 172 H (70-99(Fasting)) mg/dl Calcium 9.8 (8.6-10.3) mg/dl Total Bilirubin 0.6 (0.2-1.0) mg/dl AST 22 (13-39) U/L ALT 10 (7-52) U/L Alkaline Phosphatase 63 (34-104) U/L Total Protein 7.0 (6.0-8.3) gm/dl Albumin 4.8 (3.4-5.0) gm/dl Globulin 2.2 L (2.5-4.0) gm/dl Albumin/Globulin Ratio 2.2 H (0.9-2) Imaging Data Radiologist's Impression: Lumbar Spine X-Ray 05/04/24 13:15 XR lumbar spine 2-3V CLINICAL HISTORY: Low back pain. COMPARISON STUDY: Lumbar spine MRI and radiographs September 23, 2021. Fluoroscopic images of the lumbar spine September 25, 2021. FINDINGS: Cholecystectomy clips are incidentally noted. There is mild lumbar spine with levoscoliosis. There are postoperative findings consistent with L4-L5 discectomy with interbody spacer placement, posterior decompression and bilateral pedicle screw fusion. Hardware is intact. There are no lumbar spine fractures. There is moderate multilevel disc space narrowing within the lumbar spine. IMPRESSION: 1. No lumbar spine fractures. 2. Status post L4-L5 decompression and fusion. Hardware intact. 3. Moderate degenerative changes within the lumbar spine. ACT 112: Negative or not required by law. Electronically signed by: Umair Sosa M.D. 05/04/2024 2:14 PM Thoracic Spine X-Ray 05/04/24 13:15 XR thoracic spine 3V routine CLINICAL HISTORY: back pain TECHNIQUE: 3 views of the thoracic spine were obtained. Comparison: None available at the time of this dictation. FINDINGS: No fractures or subluxations are identified. Vertebral body heights and disc spaces are well maintained. Alignment appears unremarkable. Prevertebral soft tissues are within normal limits. IMPRESSION: No acute fracture or subluxation. ACT 112: Negative or not required by law. Electronically signed by: Francesco Pinon M.D. 05/04/2024 2:49 PM Hip/Pelvis X-Ray 05/04/24 14:04 XR hip RT 2V w pelvis CLINICAL HISTORY: Right hip pain. COMPARISON: None FINDINGS: L4-L5 decompression and fusion is incidentally noted. Sacroiliac joints and symphysis pubis are intact. There are no fractures or lesions within the pelvis or hips. Hip joint spaces are preserved. There is mild osteophytosis of the left hip. IMPRESSION: 1. No fractures within the pelvis or hips. 2. Mild left hip osteoarthritis. ACT 112: Negative or not required by law. Electronically signed by: Umair Sosa M.D. 05/04/2024 3:19 PM MDM Narrative Patient is a 59-year-old female that presents to the emergency department with complaints of back pain. Patient states that she went down a slide with her grandson on Saturday and has had worsening pain since. Patient notes that the pain today is so severe that she is not able to ambulate as easily and the pain is radiating down into her hip. Patient notes that she has had previous fusion with Dr. Oneal in 2021. Patient states that she has tried her muscle relaxer and [id number] pain medications at home with no relief of her pain. Patient denies any loss of bladder or bowel control. Patient notes some intermittent tingling going down her legs. Patient was evaluated by myself and findings were noted in the physical exam above. Patient was ordered a dose of oxycodone, IM Toradol, and a Lidoderm patch. Patient was also ordered x-rays of her thoracic spine, lumbar spine, and right hip and pelvis. Upon reevaluation the patient states that she has had no relief of her pain and the patient is writhing in bed and discomfort at this time. Patient was ordered a second dose of oxycodone and IM Decadron at this time. Patient had a thoracic spine x-ray completed that was interpreted by radiology to show no acute fracture or subluxation. Patient also had a lumbar spine x-ray completed which was interpreted by radiology to show no lumbar spine fractures and intact hardware from a previous L4-L5 decompression and fusion. Patient had some moderate degenerative changes noted as well. Patient had a hip and pelvis x-ray that was interpreted by radiology to show no fractures within the pelvis or hips. Patient has some osteoarthritis noted at the left hip. I discussed these findings with the patient who verbalized understanding. Patient states that she is still having significant pain and appears to have had no relief of her pain. Patient was ordered IV placement, lab work and IV morphine for her pain at this time. Upon reevaluation the patient notes that her pain has improved only mildly and she still in significant amount of pain and does not believe that she can go home and the amount of pain that she is in. Patient was ordered a second dose of morphine at this time as well as ordered an MRI of the lumbar spine and I spoke with case management about admitting the patient to the hospital for intractable pain. I also reached out to Dr. Delgadillo who is on-call for orthopedic spine who encouraged me to reach out to Dr. Oneal as this was his surgical patient 2-1/2 years ago. I reached out to Dr. Oneal but have not heard back at this point. I spoke with Dr. Negro with the [facility] hospitalist group about admitting the patient for intractable pain. I gave Dr. Negro a full report on the patient's chief complaint, current status, and results of her imaging. I also let him know that I reached out to Dr. Oneal with no return call at this time. Dr. Negro agreed to admit the patient under his service for intractable back pain. Please [facility] for further evaluation and management of this patient. Discharge Plan Visit Data Chief Complaint: Back Injury/Pain Stated Complaint: BACK PAIN ED Provider: Erin Nevarez ED Midlevel Provider: Rima Beaver Forms Stand Alone Forms: My [facility] Prescriptions Prescriptions: No Action omeprazole 20 mg capsule,delayed release(DR/EC) 40 mg PO DAILY duloxetine 30 mg capsule,delayed release(DR/EC) 30 mg PO DAILY Rx Instructions: take with 60 mg to equal 90 mg dose duloxetine 60 mg capsule,delayed release(DR/EC) 60 mg PO DAILY Rx Instructions: take with 60 mg to equal 90 mg dose Vitamin D3 1 cap PO DAILY Rx Instructions: otc unknown dose Referrals Referrals: Merna Slater MD [Primary Care Provider] -
--- NOTE | 2024-05-04 15:20 | XRay Report ---
XR hip RT 2V w pelvis CLINICAL HISTORY: Right hip pain. COMPARISON: None FINDINGS: L4-L5 decompression and fusion is incidentally noted. Sacroiliac joints and symphysis pubi s are intact. There are no fractures or lesions within the pelvis or hips. Hip joint spaces are prese rved. There is mild osteophytosis of the left hip. IMPRESSION: 1. No fractures within the pelvis or hips. 2. Mild left hip osteoarthritis. ACT 112: Negative or not required by law. Electronically signed by: Umair Sosa M.D. 05/04/2024 3:19 PM
[2024-05-04] MEDS: MoRPHine SULFATE 4 MG/ML 1 ML CARP\\VIAL IV STA ×2 (15:55→16:19)
[2024-05-04] MEDS: ONDANSETRON INJ 2 MG/ML 2 ML VIAL IV STA (16:19)
[2024-05-04 16:25] LABS: Hematocrit (blood only) 40.8 % (37.0-47.0); Hemoglobin 13.7 g/dl (12.0-16.0); Mean Corpuscular Hgb Conc 33.6 g/dL (32.0-36.0); Mean Corpuscular Volume 89.3 fL (80.0-100.0); Mean Platelet Volume 11.3 fL (9.4-12.4); Platelet Count 188 K/uL (130-400); RDW Coefficient of Variation 12.3 % (11.5-14.5); RDW Standard Deviation 40.5 fL (36.4-46.3); Red Blood Count 4.57 M/uL (4.20-5.40); White Blood Count 11.12 K/ul (4.8-10.8)
[2024-05-04 16:32] LABS: Albumin Globulin Ratio 2.2 (0.9-2); Albumin Level 4.8 gm/dl (3.4-5.0); BUN Creatinine Ratio 25.6 (10-20); Bilirubin,Total 0.6 mg/dl (0.2-1.0); Calcium 9.8 mg/dl (8.6-10.3); Creatinine Clr Calc Pharmacy 71.1 ml/min; Globulin 2.2 gm/dl (2.5-4.0); Potassium 3.6 mmol/L (3.5-5.1)
[2024-05-04 16:48] LABS: Basophils # (auto) 0.03 K/uL (0.00-0.20); Basophils % (auto) 0.3 %; Eosinophils # (auto) 0.01 K/uL (0.00-0.50); Eosinophils % (auto) 0.1 %; Immature Granulocytes # (auto) 0.05 K/uL (0.01-0.20); Immature Granulocytes % (auto) 0.4 %; Lymphocytes # (auto) 0.78 K/uL (1.20-3.40); Monocytes % (auto) 1.8 %; Neutrophils # (auto) 10.05 K/uL (1.40-6.50); Neutrophils % (auto) 90.4 %
--- OUTSIDE RECORDS SUMMARY | 2024-05-04 16:48 | External Medical Summary | Summary of Care ---
Author Name Unknown Organization [facility] Address [address] [place] [address] Phone [phone] Care Team Providers Care Sample Tester Grinder Name Role Phone Merna Slater MD Primary Care Provider [phone] Encounter Details Date Type Department Care Team (Late st Contact Info) Description 12/02/2023 Orders Only Outcomes Research Department [address] [place], [place] [id number] Amada Keyes CHRA [employer] [facility] Other*[id number] Allergies Active Allergy Reactions Criticality Noted Date Comments Iodinated Contrast Media 08/11/[address] scan documented as of this encounter (statuses as of 12/02/2023) Medications Medication Sig Dispensed Refills Start Date End Date Status Omeprazole 20 MG Oral Capsule Delayed Release (PriLOSEC) Take 1 Capsule by mouth in the morning. Active Multi-Vitamin Daily Oral Tablet Take 1 Tablet by mouth in the morning. Active DULoxetine HCl 60 MG Oral Capsule Delayed Release Particles (Cymbalta) Take 1 Capsule by mouth in the morning. Active Calcium Carb-Cholecalciferol 600-10 MG-MCG Oral Tablet Take by mouth. Active documented as of this encounter (statuses as of 12/02/2023) Active Problems Problem Noted Date Diagnosed Date Prediabetes 01/22/2022 Overview: Per Prediabetes protocol Moderate episode of recurrent major depressive d isorder 05/20/2019 NATALIO (generalized anxiety disorder) 02/04/2019 Breast pain 06/23/2018 Encounter for other procreative management 06/23 Pelvic pain in female 06/23/2018 History of ovarian cyst 06/23/2018 ADVANCE DIRECTIVE INFORMATION 12/17/2014 Overview: No, Advance Directive brochure given to patient at prior visit Ovarian cyst 07/05/2008 ABDOMINAL PAIN, RIGHT LOWER QUADRANT 05/07/2005 ABHILASH (stress urinary incontinence, female) 2003 PREMENSTRUAL TENSION 06/11/2003 ABN GLUCOSE IN PREG-UNSP 05/22/2002 documented as of this encounter (statuses as of 12/02/2023) Resolved Problems Problem Noted Date Diagnosed Date Resolved Date Prediabetes 04/25/2020 11/23/2021 Overview: Per Prediabetes protocol Sacroiliitis 05/20/2019 04/21/2020 Burning with urination 07/28/201812/23 documented as of this encounter (statuses as of 12/02/2023) Immunizations Name Administration Dates Next Due PPD 07/14/2010 Seasonal Influenza, PF, 6 M & above, IM , (FluLaval or Fluzone) 12/28/2019,12/22/2018,12/23/2017 Seasonal Influenza, Split, I IV3, With Preserve, Inj 04/03/2011 TDAP (age 10 and older)(Boostrix) 08/27/2014 TDAP, Age 7 and older, IM (Adacel) 03/24/2012(De consuelo: Patient Refused) Zoster Vaccine Recombinant (Shingrix) 12/28/2019,09/28/2019 03/29/2020 documented as of this encounter Social History Tobacco Use Types Packs/Day Years Used Date Smoking Tobacco: Never Smokeless Tobacco: Never Alcohol Use Standard Drinks/Week Comments Yes 0 (1 standard drink = 0.6 oz pur e alcohol) rare PHQ-2 Answer Date Recorded PHQ-2 Score 0 02/29/2020 Hunger Vital Sign Answer Date Recorded Worried About Running Out of Food in the Last Ye ar Never true 12/22/2018 Ran Out of Food in the Last Year Never true 12/22/2018 Utilities Answer Date Recorded Do you have trouble paying y our heating, water, or electric bill? (Adult - for ages 18 years and over) Not on file 10/01/2023 Is your family able to pay t he heat, water, or electric bill? (Household - for ages 0-17 years) Not on file 10/01/2023 Does your family have access to good internet? (Household - for ages 0-17 years) Not on file 10/01/2023 Social Connections Answer Date Recorded How often do you feel lonely or isolated from those around you? (Adult - for ages 18 years and over) Not on file 10/01/2023 Sex and Gender Information Value Date Recorded Sex Assigned at Female 12/22/2018 5:00 PM EDT Gender Identity Female 12/22/2018 5:00 PM EDT Sexual Orientation Straight 12/22/2018 5: 00 PM EDT Job Start Date Occupation Industry Not on file Not on file Not on file documented as of this encounter Plan of Treatment Scheduled Orders Name Type Priority Associated Diagnoses Orde r Schedule MYCODE SUBSEQUENT ADULT Lab Routine [facility] Other*[id number] Every 6 Months for 2 Occurrences starting 12/02/2023 until 12/21/2024 Health Maintenance Due Date Last Done Comments Hepatitis B Vaccine (1 of 3 - 19+ 3-dose series) 02/25/1984 Cologuard 2010 Fecal Occult Blood Test 2010 Sigmoidoscopy 2010 Depression Monitoring 02/28/2021 02/29/2020 Mammogram 08/08/2022 08/08/2021, 05/17, 05/18/2020, Additional history exists COVID-19 Vaccine ( season) 2022 Influenza Vaccine (FLU shot) (#1) 2023 12/28/2019, 12/22/2018, 12/23/2017, Additional history exists DTaP,Tdap,and Td Vaccines (2 - Td or Tdap) 08/27/2024 08/27/2014 Lipid Panel 09/28/2024 09/29/2019, 12/14, 04/04/2009, Additional history exists Colonoscopy 10/14/2029 10/15/2019, 05/2019, 08/29/2017, Additional history exists Colorectal Cancer Screening 10/14/2029 Zoster Vaccines Completed 12/28/2019, 09/28/2019 HPV (Gardasil) Vaccine Aged Out No lo nger eligible based on patient's age to complete this topic MENINGOCOCCAL (MENACTRA/MENVEO) Aged Out No longer eligible based on patient's age to complete this topic Pneumococcal Vaccine: Pediatrics (0 to 5 Years) and At-Risk Patients (6 to 64 Years) Aged Out No longer eligible based on patient's age to complete this topic documented as of this encounter Medical Devices Implanted Type Area Contact Printer Dry Film Device Identifier Shelf Expiration Date Model / Serial / Lot Lens Intraoc 13.5 - [id number] - [id number] Implanted:Qty: 1 on 06/21/2022 by Rupert Carmona MD at [facility] Right: Eye [employer]OM[employer] 08/12/2026 [id number] / [id number] / [id number] Lens Intraoc 12.5 - [id number] - [id number] Implanted:Qty: 1 on 06/28/2022 by Rupert Carmona MD at [facility] Left: Eye [employer]OM[employer] 05/15/2026 [id number] / [id number] / [id number] documented as of this encounter Visit Diagnoses Diagnosis [facility] Other*[id number] documented in this encounter Advance Directives Documents on File Type Date Recorded 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 Question Answer Comments Discussion of Advance Directives occurred with: Patient Does the patient have a Living Will? No Does the patient have Health Care Power of Attor eber? No * No Code Date Activated Date Inactivated Comments 06/21/2022 9:22 AM 06/21/2022 3:54 PM This order ref lects the patients wishes and were consensually agreed upon. Question Answer Comments Discussion of Advance Directives occurred with: Patient Does the patient have a Living Will? No Does the patient have Health Care Power of Attor eber? No Care Teams Sample Tester Grinder Relationship Specialty Start Date End Date Merna Slater MD [address] [place] [id number] PCP - General Family Medicine 7/7/21 documented as of this encounter
--- NOTE | 2024-05-04 17:03 | History & Physical Report ---
Date of Service May 04, 2024 Assessment & Plan (1) Intractable back pain: Plan: Parenteral steroid therapy. Parenteral narcotics for pain control. Await lumbar MRI scan results. Supportive care (2) Lumbar degenerative disc disease: Plan: History of previous lumbar spine surgery per Dr. Oneal several years ago. Will consult orthopedic spine surgery if indicated by MRI results (3) GERD (gastroesophageal reflux disease): Plan: Stable. Continue PPI (4) Depression: Plan: Stable. Continue duloxetine Plan Hopeful discharge to home within the next 2 to 3 days History of Present Illness Chief Complaint: Lumbar back pain Primary Care Provider: Merna Slater MD 59-year-old white female with a past history of lumbar stenosis, previous lumbar surgery per Dr. Oneal. She stated she was sliding down a slide with her grandson and her back pain developed shortly thereafter. She denies any acute injury. She presented to the ED and received a variety of IM and p.o. medications to no avail. She is placed in observation with intractable lumbar pain. The pain is not radiating. Lumbar MRI scan is ordered and pending. She is admitted for further evaluation and treatment Allergies Allergy/AdvReac Type Severity Reaction Status Date / Time No Known Drug Allergies Allergy Unknown NKDA Verified 01/23/22 15:14 Gadolinium-Containing Allergy Vomiting Verified 01/23/22 15:14 Contrast Medi Home Medications Medication Instructions Recorded Confirmed Type omeprazole 20 mg capsule,delayed 40 mg PO DAILY 09/23/21 05/04/24 History release Vitamin D3 1 cap PO DAILY 05/04/24 05/04/24 History duloxetine 30 mg capsule,delayed 30 mg PO DAILY 05/04/24 05/04/24 History release duloxetine 60 mg capsule,delayed 60 mg PO DAILY 05/04/24 05/04/24 History release Past Med/Surg History Problem List (Updated 05/04/24 @ 17:02 by Nakul Negro MD) Depression GERD (gastroesophageal reflux disease) Lumbar degenerative disc disease Intractable back pain Dizziness Recurrent herniation of lumbar disc Left lumbar radiculopathy (Acute) Intractable low back pain (Acute) Lumbar back pain with radiculopathy affecting left lower extremity L4-L5 disc bulge Tinnitus, bilateral H/O bursectomy S/p L hip endoscopic bursectomy Encounter for pre-operative examination GERD (gastroesophageal reflux disease) Gluteal tendinitis of left buttock Trochanteric bursitis of left hip Cervical radicular pain Cervical pain Labral tear of hip joint Tear of gluteus minimus tendon SNHL (sensorineural hearing loss) H/O gastroesophageal reflux (GERD) Medical History Depression Neuropathy LEFT ARM History of endometriosis Surgical History Nausea and vomiting after administration of anesthetic agent History of partial hysterectomy History of endometrial ablation History of colonoscopy History of tooth extraction H/O elbow surgery RT S/P cholecystectomy Family History Father Family history of diabetes mellitus Hypertension Sister Breast cancer Other No family history of adverse response to anesthesia No family history of bleeding disorder Social History Smoking Status: Never smoker Second Hand Exposure: No; Do You Dip or Chew Tobacco: No; Hx Alcohol Use: Yes Alcohol type: beer Alcohol Intake Frequency Comment: socially Hx Substance Use: No Preferred Language: [place] Citizen Communication Ability: Effective 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 Required: No Beliefs That Will Affect Care: None marital status: Current Living Situation: Spouse and Family current occupational status: unemployed Feels Safe at Home: Yes Assistive Devices: Walker Review of Systems 2 Review of Systems: Constitutionalno fever or chills ENTno blurred vision, no double vision, no epistaxis, no sore throat Respiratoryno cough, no wheezing, no shortness of breath Cardiacno palpitations, no chest pain, no syncope Marlene nausea, vomiting, diarrhea, melena, hematochezia GUno urinary retention, no urinary incontinence, no dysuria, no hematuria Musculoskeletalno joint pain, no muscle tenderness. Lumbar pain as described above. Nonradiating Skinno bruising, no rashes, no pruritus Neurono isolated weakness, no paresthesia, no weakness Psychno depression, no anxiety Physical Exam 2 Physical Exam: General-alert and oriented x3, no fever, no chills HEENT-head atraumatic and normocephalic, pupils equal and reactive to light, extraocular muscles intact Neck-no lymphadenopathy or thyromegaly, trachea midline Chest-clear to auscultation. No rales, wheezing or rhonchi Cardiac-regular rate and rhythm, normal S1 and S2 Abdomen-normal bowel sounds, no hepatosplenomegaly Extremities-no cyanosis, clubbing, or edema Neuro-cranial nerves II through XII intact, motor and sensory function within normal limits, strength symmetrical, no focal deficits Psych-normal affect, normal mood Results & Data Results & Data Vital Signs (Past 12 Hours) Vital Signs Temp Pulse Pulse Resp BP BP Pulse Ox 05/04/24 16:19 87 18 154/69 H 98 05/04/24 15:59 79 18 138/93 100 05/04/24 12:51 36.8 C 74 22 133/66 100 O2 Del Method 05/04/24 16:19 Room Air 05/04/24 15:59 Room Air 05/04/24 12:51 Room Air Laboratory Results 05/04/24 15:56 05/04/24 15:56 Code Status & VTE Plan Code Status Full code PG Care Time/CCT Total # of Minutes Spent Total Time Spent with Patient: Total time spent is greater than 50% in coordination of care (as documented) at patient's floor/unit and/or counseling patient: Coding Level of Care Code 38587 INT INP/OBS CARE 3/75MIN Diagnoses Intractable back pain M54.9 Lumbar degenerative disc disease M51.369 GERD (gastroesophageal reflux disease) K21.9 Depression F32.A
[2024-05-04] MEDS: MoRPHine SULFATE 2 MG/ML CARP IV STA (17:31)
--- NOTE | 2024-05-04 17:47 | Magnetic Resonance Report ---
Clinical History: Lower back pain Technique: Sagittal and axial T1 and T2-weighted magnetic resonance images were obtained of the lumbar spine without gadolinium contrast. Comparison is made to the prior MRI dated 09/23/2021 Findings: There is a new anterior and posterior fusion of L4 and L5 with posterior fixation rods and pedicle screws and interbody fusion. There is no definite sign of instrumentation failure. There is mild scoliosis. No listhesis is seen. No focal osseous lesion is evident. No fracture is identified. There is no definite sign of infection. There is no sign of acute ligamentous injury. The conus medullaris appears normal, terminating at the level of T12-L1. At L1-L2, there is a new 2.9 x 1.1 x 1 cm right subarticular disc extrusion that extends superiorly posterior to the L1 vertebral body. This compresses the right L1 nerve root. The right L2 nerve root is contacted but not clearly compressed. There is left neural foramen narrowing that may affect the left L1 nerve root At L2-L3, there is an unchanged disc bulge without spinal stenosis. There is mild bilateral neural foramen narrowing At L3-L4, there is worsened spinal stenosis due to a worsened disc bulge and facet osteoarthritis. The traversing L4 nerve roots are contacted. There is bilateral neural foramen narrowing that may affect the exiting L3 nerve roots At L4-L5, the previously seen disc extrusion has been resected. There is no residual spinal stenosis or definite nerve root compression. There is mild bilateral neural foramen narrowing. At L5-S1, there is an unchanged mild disc bulge without spinal stenosis. There is slight encroachment upon both neural foramen. Impression: 1. New L4-5 fusion with resection of the previously seen disc herniation at that level 2. New large 2.9 cm disc extrusion at L1-2. This disc herniation compresses the right L1 nerve root and contacts the right L2 nerve root 3. Left L1-2 and bilateral L3-4 neural foramen narrowing, which may affect the exiting nerve roots. Less severe neural foramen narrowing is seen at other levels 4. Interval worsening of spinal stenosis at L3-4, which may affect the traversing L4 nerve roots Electronically signed by Simeon Neville 05-04-2024 5:47 PM
[2024-05-04] MEDS ORDERED: methylPREDNISolone 10 mg/mL (For Ped Dose < 7mg) IV SCH (18:22)
[2024-05-04] MEDS ORDERED: ONDANSETRON INJ 2 MG/ML 2 ML VIAL IV PRN (18:22)
[2024-05-04] MEDS ORDERED: ACETAMINOPHEN 325 MG TAB PO PRN (18:22)
[2024-05-04] MEDS: methylPREDNISolone 60 MG in SYRINGE 0 ML IV SCH (19:11)
[2024-05-04 19:48] LABS: Appearance Urine Clear (Clear); Bacteria Urine Automated None Seen (None Seen); Bilirubin Urine 1+ (Negative); Blood Urine Negative (Negative); Color Urine Dark Yellow; Epithelial Cell Urine Auto 0-2 /hpf (0-2); Glucose Urine UA Negative (Negative); Ketones Urine 2+ (Negative); Leukocyte Esterase Urine 2+ (Negative); Nitrite Urine Negative (Negative); Protein Urine 1+ (Negative); Specific Gravity Urine 1.028 (1.000-1.030); Urobilinogen Urine Negative (Negative); WBC Urine Automated >50 /hpf (0-5)
[2024-05-04] MEDS: MoRPHine SULFATE 2 MG/ML CARP IV PRN (19:54)
[2024-05-05] MEDS: CHOLECALCIFEROL 10 MCG (400 UNITS) TAB PO SCH (08:14)
[2024-05-05] MEDS: DULoxetine HCL 30 MG CAP PO SCH (08:14)
[2024-05-05] MEDS: DULoxetine HCL 60 MG CAP PO SCH (08:14)
[2024-05-05] MEDS: PANTOprazole 40 MG TAB PO SCH (08:14)
--- NOTE | 2024-05-05 11:16 | Orthopedic Consultation ---
Date of Consultation May 05, 2024 Assessment & Plan (1) Lumbosacral spondylosis with radiculopathy: Assessment lumbar disc herniation L1-L2 foraminal to extraforaminal nature. Plan along discussion with the with the patient reviewing her clinical course and MRI findings. MRI does demonstrate evidence of disc herniation at L1-L2 with a fragment migrating into the neuroforamen on the right. This is consistent with her L2 radiculopathy. She does have a component of adjacent level stenosis L3-L4 above her previous fusion L4-L5. This does not appear to be contributing to her symptom complex at this time. In discussion today regarding treatment options which include continued medicine interventional pain management or surgery. In light of her severe distress marked limitations with ambulation and narcotic requirements would like to pursue surgical invention. This is reasonable in light of the gross neural compression and foraminal nature of the disc herniation placing pressure directly on the dorsal root ganglion. I discussed surgery would most likely require complete facetectomy at L1-L2 on the right to safely and adequately remove the disc fragment and protect the nerve root. This would create iatrogenic instability subsequently requiring fusion at L1-L2. Risk-benefit pros cons of terms outlined in detail. Will make her n.p.o. after midnight plan for surgery tomorrow. History of Present Illness Reason for Consultation: Right groin and thigh pain Attending Physician: Nakul Negro MD History of Present Illness This is a 59-year-old female well-known to the presents the emergency room with severe right sided back pain and groin pain. She states the symptoms began [place] and worsened throughout the weekend. She does take care of her 2-year-old grandson and is a very active person. She has no significant leg symptoms but some chronic leg pain from years ago. This is unchanged. She has numbness extending into the peroneal area on the right. She can ambulate but very slowly secondary the pain. She is unable to find a comfortable position. She is requiring narcotics for pain control. She states that steroids have helped a component of her back pain. Allergies Allergy/AdvReac Type Severity Reaction Status Date / Time No Known Drug Allergies Allergy Unknown NKDA Verified 01/23/22 15:14 Gadolinium-Containing Allergy Vomiting Verified 01/23/22 15:14 Contrast Medi Home Medications Medication Instructions Recorded Confirmed Type omeprazole 20 mg capsule,delayed 40 mg PO DAILY 09/23/21 05/04/24 History release Vitamin D3 1 cap PO DAILY 05/04/24 05/04/24 History duloxetine 30 mg capsule,delayed 30 mg PO DAILY 05/04/24 05/04/24 History release duloxetine 60 mg capsule,delayed 60 mg PO DAILY 05/04/24 05/04/24 History release Patient History Medical History Depression Neuropathy LEFT ARM History of endometriosis Surgical History Nausea and vomiting after administration of anesthetic agent History of partial hysterectomy History of endometrial ablation History of colonoscopy History of tooth extraction H/O elbow surgery RT S/P cholecystectomy Family History Father Family history of diabetes mellitus Hypertension Sister Breast cancer Other No family history of adverse response to anesthesia No family history of bleeding disorder Social History Smoking Status: Never smoker Second Hand Exposure: No; Do You Dip or Chew Tobacco: No; Hx Alcohol Use: Yes Alcohol type: beer Alcohol Intake Frequency Comment: socially Hx Substance Use: No Preferred Language: Thai Communication Ability: Effective 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 She is sensation to cold and light touch bilateral extremities. She has good strength testing left lower extremity with 5/5 plantarflexion dorsiflexion quadriceps are on the right she is a 5/5 plantarflexion dorsiflexion with weakness to hip flexion and L4-L5. She has obvious distress secondary to radiculopathy with range of motion. Deep and reflexes diminished. Results & Data Vital Signs (Past 12 Hours) Vital Signs Temp Pulse Resp BP Pulse Ox O2 Del Method 05/05/24 07:46 36.6 C 85 16 105/64 95 Room Air
--- NOTE | 2024-05-05 12:33 | Hospitalist Progress Note ---
Date of Service May 05, 2024 Assessment & Plan (1) Intractable back pain: Plan: Continue parenteral steroid therapy. Parenteral narcotics for pain control. Improved since admission. Lumbar MRI reveals a new right HNP at the L1-L2 level. She has been seen by orthopedic spine surgery and intervention is scheduled for tomorrowMay 06. Supportive care (2) Lumbar degenerative disc disease: Plan: History of previous lumbar spine surgery per Dr. Oneal several years ago. Appreciate orthopedic spine consultation and recommendations. Surgical intervention tomorrowMay 06 (3) GERD (gastroesophageal reflux disease): Plan: Stable. Continue PPI (4) Depression: Plan: Stable. Continue duloxetine Plan To be determined Admission and Anticipated Discharge Date Admission Date: May 04, 2024 Subjective Awake and alert. She feels more comfortable. MRI of the lumbar spine revealed a new right sided L1-L2 herniated nucleus pulposus. She has been seen by orthopedic spine surgery and intervention scheduled for tomorrowMay 06. She remains on intravenous Solu-Medrol and as needed IV morphine. Review of Systems 2 Review of Systems: Constitutionalno fever or chills ENTno blurred vision, no double vision, no epistaxis, no sore throat Respiratoryno cough, no wheezing, no shortness of breath Cardiacno palpitations, no chest pain, no syncope Marlene nausea, vomiting, diarrhea, melena, hematochezia GUno urinary retention, no urinary incontinence, no dysuria, no hematuria Musculoskeletalno joint pain, no muscle tenderness. Lumbar pain as described above. Nonradiating and improved Skinno bruising, no rashes, no pruritus Neurono isolated weakness, no paresthesia, no weakness Psychno depression, no anxiety Physical Exam 2 Physical Exam: General-alert and oriented x3, no fever, no chills HEENT-head atraumatic and normocephalic, pupils equal and reactive to light, extraocular muscles intact Neck-no lymphadenopathy or thyromegaly, trachea midline Chest-clear to auscultation. No rales, wheezing or rhonchi Cardiac-regular rate and rhythm, normal S1 and S2 Abdomen-normal bowel sounds, no hepatosplenomegaly Extremities-no cyanosis, clubbing, or edema Neuro-cranial nerves II through XII intact, motor and sensory function within normal limits, strength symmetrical, no focal deficits Psych-normal affect, normal mood Results & Data Results & Data Vital Signs (Past 12 Hours) Vital Signs Temp Pulse Resp BP Pulse Ox O2 Del Method 05/05/24 07:46 36.6 C 85 16 105/64 95 Room Air Laboratory Results 05/04/24 15:56 05/04/24 15:56 PG Care Time/CCT Total # of Minutes Spent Total Time Spent with Patient: Total time spent is greater than 50% in coordination of care (as documented) at patient's floor/unit and/or counseling patient: Coding Level of Care Code 72945 SUB INP/OBS CARE 2/35MIN Diagnoses Intractable back pain M54.9 Lumbar degenerative disc disease M51.369 GERD (gastroesophageal reflux disease) K21.9 Depression F32.A
[2024-05-06] MEDS ORDERED: MIDAZOLAM HCL 1 MG/ML 2ML VIAL ONE (10:44)
[2024-05-06] MEDS ORDERED: fentaNYL citrate PF 100 MCG/2 ML VIAL ONE (10:44)
[2024-05-06] MEDS ORDERED: GLYCOPYRROLATE 0.2 MG/ML VIAL ONE (10:44)
[2024-05-06] MEDS ORDERED: PROPOFOL IV EMULSION 10 MG/ML 20 ML VIAL IV ONE (10:44)
[2024-05-06] MEDS ORDERED: LIDOCAINE 2% 2 ML VIAL/AMP(20MG/ML) INFIL ONE (10:44)
[2024-05-06] MEDS ORDERED: DEXAMETHASONE SOD INJ 4 MG/ML VIAL ONE (10:44)
[2024-05-06] MEDS ORDERED: ONDANSETRON INJ 2 MG/ML 2 ML VIAL ONE (10:44)
[2024-05-06] MEDS ORDERED: ROCURONIUM BROMIDE 10 MG/ML 5 ML VIAL IV ONE (10:44)
[2024-05-06] MEDS ORDERED: SUGAMMADEX SODIUM 200 MG/2 ML VIAL IV ONE (10:50)
--- NOTE | 2024-05-06 12:54 | Hospitalist Progress Note ---
Date of Service May 06, 2024 Assessment & Plan (1) Intractable back pain: Plan: Continue parenteral steroid therapy. Parenteral narcotics for pain control. Improved since admission. Lumbar MRI reveals a new right HNP at the L1-L2 level. She has been seen by orthopedic spine surgery and intervention is scheduled for today, May 06. Supportive care (2) Lumbar degenerative disc disease: Plan: History of previous lumbar spine surgery per Dr. Oneal several years ago. Appreciate orthopedic spine consultation and recommendations. Surgical intervention todayMay 06 (3) GERD (gastroesophageal reflux disease): Plan: Stable. Continue PPI (4) Depression: Plan: Stable. Continue duloxetine Plan Lumbar surgical intervention todayMay 06. Hopeful discharge to previous living arrangements within the next several days Admission and Anticipated Discharge Date Admission Date: May 06, 2024 Subjective Alert and oriented. Resting comfortably in bed. Lumbar surgical intervention todayMay 06. Case discussed with Dr. Oneal, orthopedic spine surgery Review of Systems 2 Review of Systems: Constitutionalno fever or chills ENTno blurred vision, no double vision, no epistaxis, no sore throat Respiratoryno cough, no wheezing, no shortness of breath Cardiacno palpitations, no chest pain, no syncope Marlene nausea, vomiting, diarrhea, melena, hematochezia GUno urinary retention, no urinary incontinence, no dysuria, no hematuria Musculoskeletalno joint pain, no muscle tenderness. Lumbar pain as described above. Nonradiating and improved Skinno bruising, no rashes, no pruritus Neurono isolated weakness, no paresthesia, no weakness Psychno depression, no anxiety Physical Exam 2 Physical Exam: General-alert and oriented x3, no fever, no chills HEENT-head atraumatic and normocephalic, pupils equal and reactive to light, extraocular muscles intact Neck-no lymphadenopathy or thyromegaly, trachea midline Chest-clear to auscultation. No rales, wheezing or rhonchi Cardiac-regular rate and rhythm, normal S1 and S2 Abdomen-normal bowel sounds, no hepatosplenomegaly Extremities-no cyanosis, clubbing, or edema Neuro-cranial nerves II through XII intact, motor and sensory function within normal limits, strength symmetrical, no focal deficits Psych-normal affect, normal mood Results & Data Results & Data Vital Signs (Past 12 Hours) Vital Signs Temp Pulse Resp BP Pulse Ox O2 Del Method 05/06/24 07:34 36.6 C 73 16 122/70 98 Room Air Laboratory Results 05/04/24 15:56 05/04/24 15:56 PG Care Time/CCT Total # of Minutes Spent Total Time Spent with Patient: Total time spent is greater than 50% in coordination of care (as documented) at patient's floor/unit and/or counseling patient: Coding Level of Care Code 76251 SUB INP/OBS CARE 2/35MIN Diagnoses Intractable back pain M54.9 Lumbar degenerative disc disease M51.369 GERD (gastroesophageal reflux disease) K21.9 Depression F32.A
[2024-05-06] MEDS ORDERED: Nursing to Pharmacy Communication STA (13:22)
[2024-05-06] MEDS: LR @ 15ML/HR IV SCH (13:33)
--- NOTE | 2024-05-06 14:02 | History & Physical Bridge Note ---
Date of Service May 06, 2024 History & Physical Bridge Note I have examined the patient, reviewed the History & Physical and in the interval since the performance of the History & Physical I have noted the following changes of clinical significance: no changes noted Decompression fusion L1-L2
--- NOTE | 2024-05-06 14:10 | Anesthesiology Consultation ---
Date of Service May 06, 2024 Assessment & Plan Chart Review Chart Review: Acceptable Risk for Surgery Consults Requested none History Surgery Operation Date: 05/06/24 14:05 Proposed Procedures p Decompression Fusion L1-L2 Spinal Cord Monitoring - Ethan Oneal DO Height/Weight Height: 5 ft 8 in Weight: 63.6 kg Allergies Allergy/AdvReac Type Severity Reaction Status Date / Time Gadolinium-Containing Allergy Vomiting Verified 05/06/24 13:29 Contrast Medi Medications Home Medications Medication Instructions Recorded Confirmed Last Taken omeprazole 20 mg capsule,delayed 40 mg PO DAILY 09/23/21 05/04/24 05/04/24 release Vitamin D3 1 cap PO DAILY 05/04/24 05/04/24 05/04/24 duloxetine 30 mg capsule,delayed 30 mg PO DAILY 05/04/24 05/04/24 05/04/24 release duloxetine 60 mg capsule,delayed 60 mg PO DAILY 05/04/24 05/04/24 05/04/24 release Active Medications Generic Name Dose Route Start Last Admin Trade Name Freq PRN Reason Stop Dose Admin Duloxetine HCl 30 mg 05/05/24 09:00 05/06/24 08:13 Duloxetine Hcl 30 Mg Cap PO 06/04/24 08:59 30 mg DAILY LON Administration Duloxetine HCl 60 mg 05/05/24 09:00 05/06/24 08:13 Duloxetine Hcl 60 Mg Cap PO 06/04/24 08:59 60 mg DAILY LON Administration Methylprednisolone 60 mg/ 0.96 mls @ 1.5 mls/min 05/04/24 18:30 05/06/24 11:00 Syringe IV 06/03/24 18:29 1.5 mls/min Q8H LON Administration Lactated Ringer's 1,000 mls @ 15 mls/hr 05/06/24 13:30 05/06/24 13:33 Lr IV 05/07/24 13:29 15 mls/hr .Q24H LON Administration Morphine Sulfate 2 mg 05/04/24 18:22 05/05/24 20:28 Morphine Sulfate 2 Mg/Ml Carp IV 05/18/24 18:21 2 mg Q3H PRN Administration Pain Pantoprazole Sodium 40 mg 05/05/24 09:00 05/06/24 08:13 Pantoprazole 40 Mg Tab PO 06/04/24 08:59 40 mg DAILY LON Administration Vitamin D 10 mcg 05/05/24 09:00 05/06/24 08:12 Cholecalciferol 10 Mcg (400 Units) Tab PO 06/04/24 08:59 10 mcg DAILY LON Administration NPO Date Last Intake of Fluids: 05/05/24 Time Last Intake of Fluids: 20:30 Date Last Intake of Solids: 05/05/24 Time Last Intake of Solids: 17:00 Past Medical History Medical History Depression Neuropathy LEFT ARM History of endometriosis Past Family History Family History Father Family history of diabetes mellitus Hypertension Sister Breast cancer Other No family history of adverse response to anesthesia No family history of bleeding disorder Past Surgical History Surgical History Nausea and vomiting after administration of anesthetic agent History of partial hysterectomy History of endometrial ablation History of colonoscopy History of tooth extraction H/O elbow surgery RT S/P cholecystectomy Social History Smoking Status: Never smoker Do You Dip or Chew Tobacco: No Hx Alcohol Use: Yes Alcohol type: beer alcohol intake frequency: a few times a month Hx Substance Use: No substance use type: does not use Physical Exam Vital Signs Last Vital Signs Temp 36.6 C 05/06/24 13:24 Pulse 77 05/06/24 13:24 Resp 20 05/06/24 13:24 BP 127/72 05/06/24 13:24 Pulse Ox 98 05/06/24 13:24 O2 Del Method Room Air 05/06/24 13:24 Testing Laboratory Results 05/04/24 15:56 05/04/24 15:56 Urine Color Dark Yellow 05/04/24 18:42 Urine Appearance Clear (Clear) 05/04/24 18:42 Urine pH 7.0 (4.5-7.5) 05/04/24 18:42 Ur Specific [place] 1.028 (1.000-1.030) 05/04/24 18:42 Urine Protein 1+ (Negative) H 05/04/24 18:42 Urine Glucose (UA) Negative (Negative) 05/04/24 18:42 Urine Ketones 2+ (Negative) H 05/04/24 18:42 Urine Nitrite Negative (Negative) 05/04/24 18:42 Ur Leukocyte Esterase 2+ (Negative) H 05/04/24 18:42 Urine WBC (Auto) >50 /hpf (0-5) H 05/04/24 18:42 Urine RBC (Auto) 3-5 /hpf (0-2) H 05/04/24 18:42 U Hyaline Cast (Auto) 6-10 /lpf (0-2) H 05/04/24 18:42 U Epithel Cells (Auto) 0-2 /hpf (0-2) 05/04/24 18:42 Urine Bacteria (Auto) None Seen (None Seen) 05/04/24 18:42 Blood Type A Positive 05/05/24 14:38 Antibody Screen NEGATIVE 05/05/24 14:38 05/04/24 18:42 Urine Culture - Final Urine,Clean Catch Three types of organisms present, all low counts probable skin eve. No further identifications or sensitivities to follow.
[2024-05-06] MEDS ORDERED: ePHEDrine sulfate 50 MG/ML AMP IV PRN (14:11)
[2024-05-06] MEDS ORDERED: ONDANSETRON INJ 2 MG/ML 2 ML VIAL IV PRN ×2 (14:11→17:39)
[2024-05-06] MEDS ORDERED: ATROPINE SULFATE 0.1 MG/ML 10ML SYR IV PRN (14:11)
[2024-05-06] MEDS ORDERED: PROMETHAZINE HCL 6.25 MG in SODIUM CHLORIDE 0.9% 50 ML IV PRN (14:11)
[2024-05-06] MEDS: ceFAZolin 2000MG 2,000 MG/15 ML SYR IV ONE (14:36)
[2024-05-06] MEDS: ceFAZolin 330 MG/ML 1 GM VIAL ONE (15:00)
[2024-05-06] MEDS: BUPIVACAINE/EPINEPHRINE 0.25% 1:200,000 30 ML VIAL ONE (15:01)
[2024-05-06] MEDS: ceFAZolin 2,000 MG/15 ML IV PUSH IV ONE (15:01)
[2024-05-06] MEDS: FLOSEAL HEMOSTATIC MATRIX 10ML TOP ONE (15:52)
--- NOTE | 2024-05-06 15:56 | Operative Report ---
Post Operative Report Pre & Post Diagnosis Operation Date: 05/06/24 14:05 Pre-Op Diagnosis: Lumbar disc herniation with radiculopathy Lumbar foraminal stenosis with radiculopathy Post-Op Diagnosis: Same I identified the patient and participated in the time-out.: Yes Procedure Operation Date: 05/06/24 14:05 Actual Procedures #1 lumbar decompression bilaterally facetectomies and foraminotomies L1-L2. #2 posterior spinal fusion L1-L2. #3 placed posterior instrumentation L1-L2. #4 interbody fusion L1-L2. #5 patient was Spira 14 x 26 mm at L1-L2. #6 placement locally harvested morselized autograft posterior gutters. #7 placement infuse collagen sponge combined with Koros in the posterior lateral gutters and os design and interbody space. #8 application of versa wrap over the exposed dura. Surgeon Ethan Oneal DO Maintenance Tech Edwina Paulino Estimated Blood Loss 50 Findings Consistent with Post-Op Diagnosis Specimens None Indications This is a 59-year-old female who presents who presents with diagnosis. The patient's significant pain narcotic requirements and ability to function she is here for urgent decompression fusion. Description of Procedure Patient was met with identified informed consent obtained. Patient was then taken to the operative suite underwent intubation placed in a prone position on the Scott table on top of the Charlie frame. All bony prominences well-padded eyes inspected to ensure no external pressure placed upon the. This point the l umbar spine was prepped and draped no sterile fashion. Sharp dissection with the assistance of Bovie cautery performed down to and exposing the lamina transverse processes of L1-L2. From caudal to cephalad fashion a complete laminectomy of L1 was performed including bilateral medial facetectomies and foraminotomies addressing all subarticular and foraminal stenosis. Also addressed a massive foraminal disc herniation on the right extending from the axillary aspect of the L1 root out through the foramina. Pedicle screws then placed in L1-L2 bilaterally with assistance of fluoroscopy in the process tosin placed. By way of transforaminal approach on the right a complete CAP of L1-L2 was performed endplates guided to subcortical and bone and a 14 x 26 mm spiral cage filled with os design bone graft tapped position. The rods then compressed locked in final position bilaterally. The transverse processes of L1-L2 burred to subcortical bone. Infuse collagen sponge, with Koros and local autograft placed in the posterior lateral gutters. 15 round DAJUAN drain inserted. The incision was then closed with 1 Vicryl the fascia 2-0 Vicryl subcutaneously and 4 Monocryl for final skin closure. Steri-Strips sterile dressing placed. Patient waken taken PACU stable condition. Please note spinal cord monitoring was utilized at the procedure no changes noted. Lastly Edwina Paulino was present at the entire surgeon while the patient positioning complex portion of the surgery and final skin closure. I attest to the content of the Intraoperative Record and any orders documented therein. Any exceptions are noted below.
--- NOTE | 2024-05-06 16:07 | Fluoroscopy Report ---
FL lumbar spine 2-3V CLINICAL HISTORY: DECOMPRESSION FUSION L1-L2 TECHNIQUE: 2 views were obtained with the C-arm in the OR with the above procedure. Total fluoroscopy time was 16.2 seconds. Radiation dose was 6.06 mGy. Comparison: Comparison is made to MRI lumbar spine 05/04/2024 FINDINGS/IMPRESSION: Intraoperative images were obtained of L1-L2 decompression and fusion. Please correlate with intraoperative fluoroscopy and operative report. ACT 112: Negative or not required by law. Electronically signed by: Francesco Pinon M.D. 05/06/2024 4:04 PM
[2024-05-06] MEDS: fentaNYL citrate PF 100 MCG/2 ML VIAL IV PRN (16:22)
[2024-05-06] MEDS: HYDROmorphone INJ 2 MG/ML SYR/VIAL IV PRN (16:34)
--- NOTE | 2024-05-06 17:30 | Anesthesiology Progress Note ---
Date of Service May 06, 2024 Anesthesia Post Procedure Vital Signs Vital Signs: Temp Pulse Pulse Resp BP BP Pulse Ox 05/06/24 17:00 36.9 C 101 H 19 107/74 95 05/06/24 16:50 94 H 12 129/70 98 05/06/24 16:40 87 12 131/72 99 05/06/24 16:30 88 14 139/73 100 05/06/24 16:20 93 H 15 125/74 100 05/06/24 16:10 36.4 C L 86 12 124/73 100 05/06/24 13:24 36.6 C 77 20 127/72 98 05/06/24 07:34 36.6 C 73 16 122/70 98 05/05/24 19:25 36.8 C 82 16 111/63 96 O2 Del Method O2 Flow Rate 05/06/24 17:00 Room Air 05/06/24 16:50 Oxymask 2 05/06/24 16:40 Oxymask 2 05/06/24 16:30 Oxymask 5 05/06/24 16:20 Oxymask 5 05/06/24 16:10 Oxymask 11 05/06/24 13:24 Room Air 05/06/24 07:34 Room Air 05/05/24 19:25 Room Air Pain Intensity Right Lower Back: Pain Intensity: 6 Bilateral Lower Back: Pain Intensity: 4 Transfer of Care Handoff Completed per policy Notes Mental Status: alert / awake / arousable Patient Amnestic to Procedure: Yes Nausea / Vomiting: adequately controlled Pain: adequately controlled Airway Patency, RR, SpO2: stable & adequate BP & HR: stable & adequate Hydration State: stable & adequate Anesthetic Complications: no major complications apparent
[2024-05-06] MEDS ORDERED: METOCLOPRAMIDE HCL INJ 5 MG/ML 2 ML VIAL IV PRN (17:39)
[2024-05-06] MEDS ORDERED: hydrOXYzine HCl 25 MG TAB PO PRN (17:39)
[2024-05-06] MEDS ORDERED: NALOXONE HCL 0.4 MG/1 ML VIAL/CARP IV PRN (17:39)
[2024-05-06] MEDS ORDERED: SOD PHOSPHATE/SOD BIPHOSPHATE ENEMA 132 ML BTL PR PRN (17:39)
[2024-05-06] MEDS ORDERED: diphenhydrAMINE Capsule 25 MG CAP PO PRN (17:39)
[2024-05-06] MEDS ORDERED: PROMETHAZINE 12.5 MG/50.5 ML BAG IV PRN (17:39)
[2024-05-06] MEDS ORDERED: DO NOT ADMINISTER PNEUMOCOCCAL VACCINE PRN (17:39)
[2024-05-06] MEDS ORDERED: LORazepam 0.5 MG TAB PO PRN (17:39)
[2024-05-06] MEDS ORDERED: bisacodyL 10 MG SUPP PR PRN (17:39)
[2024-05-06] MEDS ORDERED: LORazepam 2 MG/1 ML VIAL IV PRN (17:39)
[2024-05-06] MEDS ORDERED: FAMOTIDINE 20 MG TAB PO PRN (17:39)
[2024-05-06] MEDS ORDERED: ACETAMINOPHEN 1,000 MG/100 ML VIAL IV PRN (17:39)
[2024-05-06] MEDS ORDERED: ONDANSETRON 4 MG OD TAB PO PRN (17:39)
[2024-05-06] MEDS ORDERED: MAGNESIUM HYDROXIDE SUSP 30 ML UDC PO PRN (17:39)
[2024-05-06] MEDS ORDERED: DO NOT ADMINISTER FLU VACCINE PRN (17:39)
[2024-05-06] MEDS ORDERED: HYDROmorphone INJ 0.5 MG/0.5 ML SYR IV PRN (17:39)
[2024-05-06] MEDS ORDERED: ALUMINUM/MAGNESIUM SUSP 30 ML UDC PO PRN (17:39)
[2024-05-06] MEDS: DOCUSATE SODIUM/SENNA 50/8.6MG TAB PO SCH (21:20)
[2024-05-06] MEDS: oxyCODONE HCL IR 5 MG TAB (IMMEDIATE RELEASE) PO PRN (21:20)
[2024-05-06] MEDS: ceFAZolin 1000MG 1,000 MG/7.5 ML SYR IV SCH (23:40)
[2024-05-06] MEDS: HYDROmorphone INJ 1 MG/ML SYRINGE IV PRN (23:41)
[2024-05-07] MEDS: POLYETHYLENE (MIRALAX) 17 GM PACK PO SCH (06:23)
[2024-05-07 06:56] LABS: Basophils # (auto) 0.02 K/uL (0.00-0.20); Basophils % (auto) 0.1 %; Hematocrit (blood only) 39.5 % (37.0-47.0); Hemoglobin 13.2 g/dl (12.0-16.0); Immature Granulocytes # (auto) 0.09 K/uL (0.01-0.20); Immature Granulocytes % (auto) 0.6 %; Lymphocytes # (auto) 2.07 K/uL (1.20-3.40); Lymphocytes % (auto) 13.3 %; Mean Corpuscular Hemoglobin 30.6 pg (25.0-34.0); Mean Corpuscular Hgb Conc 33.4 g/dL (32.0-36.0); Mean Corpuscular Volume 91.6 fL (80.0-100.0); Mean Platelet Volume 11.3 fL (9.4-12.4); Monocytes # (auto) 1.23 K/uL (0.11-0.59); Monocytes % (auto) 7.9 %; Neutrophils # (auto) 12.21 K/uL (1.40-6.50); Neutrophils % (auto) 78.1 %; Platelet Count 173 K/uL (130-400); RDW Coefficient of Variation 12.4 % (11.5-14.5); Red Blood Count 4.31 M/uL (4.20-5.40); White Blood Count 15.62 K/ul (4.8-10.8)
[2024-05-07 07:11] LABS: BUN Creatinine Ratio 30.8 (10-20); Calcium 9.2 mg/dl (8.6-10.3); Potassium 4.2 mmol/L (3.5-5.1)
[2024-05-07] MEDS: ACETAMINOPHEN 500 MG TAB PO PRN (08:14)
[2024-05-07] MEDS: dexAMETHasone 6 MG in SYRINGE 0 ML IV SCH (09:06)
--- NOTE | 2024-05-07 12:27 | Orthopedic Progress Note ---
Date of Service May 07, 2024 Assessment & Plan (1) Lumbosacral spondylosis with radiculopathy: Plan: We will continue physical therapy monitor DAJUAN operatively discharge home in the next few days. Admission and Anticipated Discharge Date Admission Date: May 06, 2024 Subjective Back pain controlled leg pain markedly improved Physical Exam Physical Exam: Patient is in the chair at the bedside. She is constricted testing. Is comfortable. Results & Data Vital Signs (Past 12 Hours) Vital Signs Temp Pulse Resp BP Pulse Ox O2 Del Method 05/07/24 11:42 36.7 C 69 16 121/75 99 Room Air 05/07/24 07:33 36.6 C 66 16 124/74 99 Room Air 05/07/24 03:07 36.7 C 82 16 124/75 95 Room Air
--- NOTE | 2024-05-07 15:37 | Hospitalist Progress Note ---
Date of Service May 07, 2024 Assessment & Plan (1) Intractable back pain: Plan: Currently on parenteral steroid therapy postoperatively. Improved since admission. Lumbar MRI revealed a new right HNP at the L1-L2 level. Surgical intervention completed yesterday, May 06. Postoperative day #1. Improved. (2) Lumbar degenerative disc disease: Plan: History of previous lumbar spine surgery per Dr. Oneal several years ago. Appreciate orthopedic spine consultation and recommendations. Surgical intervention completed on May 06. Improved (3) GERD (gastroesophageal reflux disease): Plan: Stable. Continue PPI (4) Depression: Plan: Stable. Continue duloxetine Plan Hopeful discharge to home tomorrow, May 08 Admission and Anticipated Discharge Date Admission Date: May 06, 2024 Subjective Alert and oriented. Afebrile. Vital signs stable. She appears much more comfortable after lumbar surgery yesterday, May 06. Postoperative day #1. She remains on parenteral dexamethasone. Orthopedic spine surgery entry noted. Hopefully she can go home tomorrow, May 08 Review of Systems 2 Review of Systems: Constitutionalno fever or chills ENTno blurred vision, no double vision, no epistaxis, no sore throat Respiratoryno cough, no wheezing, no shortness of breath Cardiacno palpitations, no chest pain, no syncope Marlene nausea, vomiting, diarrhea, melena, hematochezia GUno urinary retention, no urinary incontinence, no dysuria, no hematuria Musculoskeletalno joint pain, no muscle tenderness. Lumbar discomfort postoperatively as expected. Skinno bruising, no rashes, no pruritus Neurono isolated weakness, no paresthesia, no weakness Psychno depression, no anxiety Physical Exam 2 Physical Exam: General-alert and oriented x3, no fever, no chills HEENT-head atraumatic and normocephalic, pupils equal and reactive to light, extraocular muscles intact Neck-no lymphadenopathy or thyromegaly, trachea midline Chest-clear to auscultation. No rales, wheezing or rhonchi Cardiac-regular rate and rhythm, normal S1 and S2 Abdomen-normal bowel sounds, no hepatosplenomegaly Extremities-no cyanosis, clubbing, or edema Neuro-cranial nerves II through XII intact, motor and sensory function within normal limits, strength symmetrical, no focal deficits Psych-normal affect, normal mood Results & Data Results & Data Vital Signs (Past 12 Hours) Vital Signs Temp Pulse Resp BP Pulse Ox O2 Del Method 01/23/25 11:42 36.7 C 69 16 121/75 99 Room Air 05/07/24 07:33 36.6 C 66 16 124/74 99 Room Air Laboratory Results 05/07/24 06:17 05/07/24 06:17 PG Care Time/CCT Total # of Minutes Spent Total Time Spent with Patient: Total time spent is greater than 50% in coordination of care (as documented) at patient's floor/unit and/or counseling patient: Coding Level of Care Code 42943 SUB INP/OBS CARE 2/35MIN Diagnoses Intractable back pain M54.9 Lumbar degenerative disc disease M51.369 GERD (gastroesophageal reflux disease) K21.9 Depression F32.A
[2024-05-08 07:56] VITALS: PULSE 113; RESP 16; TEMP 98.2; O2SAT 96
--- NOTE | 2024-05-08 09:47 | Discharge Summary ---
Date of Service May 08, 2024 Admission HPI Per Admitting Provider 59-year-old white female with a past history of lumbar stenosis, previous lumbar surgery per Dr. Oneal. She stated she was sliding down a slide with her grandson and her back pain developed shortly thereafter. She denies any acute injury. She presented to the ED and received a variety of IM and p.o. medications to no avail. She is placed in observation with intractable lumbar pain. The pain is not radiating. Lumbar MRI scan is ordered and pending. She is admitted for further evaluation and treatment Principal Diagnosis Lumbar disc with radiculopathy Discharge Data Allergies Allergy/AdvReac Type Severity Reaction Status Date / Time Gadolinium-Containing Allergy Vomiting Verified 05/06/24 13:29 Contrast Medi Consultations 05/04/24 16:16 ED Decision to Admit Stat 05/04/24 18:51 Consult Orthopedic Spine Surgery Routine Procedures Performed Operation Date: 05/06/24 14:05 Actual Procedures p L1-L2 Decompression and Fusion, Spinal Cord Monitoring(Not Applicable) - Ethan Oneal, Ordered Studies 05/04/24 16:08 MRI Lumbar Spine [MR lumbar spine wo con] Stat 05/06/24 14:05 [place] lumbar spine 2-3V Routine Hospital Course (1) Lumbosacral spondylosis with radiculopathy: Patient was admitted with severe lumbar radiculopathy. Ultimately Patient tolerates well was taken to orthopedic for postoperative. Postop patient progressed appropriately. Pain markedly improved. Ambulating well. DAJUAN drain decreasing. Good strength testing. Subsequently discharged home. Discharge orders instructions from the chart for further review. Total Time Total Time Spent Total Time Spent (In Minutes): 20 minutes Discharge Plan Discharge Items Patient Disposition: Home - Self-Care Reason For Visit: INTRACTABLE BACK PAIN Discharge Diagnosis: Lumbar disc condition with radiculopathy Activity: As commented below Non-emergency contact: Primary Care Provider Call non-emergency contact if: you have any medication questions Follow-up/Referrals: Merna Slater MD [Primary Care Provider] - Diet: Regular Addtl Attending Provider Instructions: ACTIVITY RECOMMENDATIONS: SELF CARE INSTRUCTIONS AFTER THORACIC/LUMBAR FUSIONS 1. You may walk to your tolerance. It is good exercise for your legs and back. Expect some back and intermittent leg aches and pains. 2. You may perform "counter-top" level activities (make a sandwich, ej with a project, etc.). 3. No bending or lifting of more than 10 pounds or back twisting of any nature (roll like a log when turning in bed). 4. You may ride in a car for 20-30 minutes at a time. No driving until after your first visit with your doctor. 5. Frequent changes of position and restricting sitting to 30 minutes at a time will help limit the amount of back spasms and stiffness you may experience. 6. You may discontinue the use of ambulatory aids (cane, crutches, etc.) once your strength and confidence allow. 7. You may industrial spray painter the shower and let water strike your incision when you arrive home at least once daily. Do not take a tub bath, sit in a hot tub or go into a swimming pool until after your first recheck in the office. 8. You may resume previous diet. SPECIAL CARE INSTRUCTIONS: VERY IMPORTANT TO READ AND REVIEW A. Your surgical incision has been closed with a cosmetic suture under the skin that will dissolve in about 6 weeks. In 14 days, you can use a pair of clean scissors and cut the suture that is left outside of the skin at the ends of your incision. 1. The small skin tapes can be removed 7 days after surgery if they have not fallen off by that point. 2. You may keep the wound open to air as much as possible to promote healing after post-op day number 5 unless told otherwise by your doctor. 3. If you think the wound looks like it is becoming infected (redness or worsening drainage) and/or you are experiencing fever, chill or worsening back pain and muscle spasms, contact the office so that we may evaluate you as soon as possible. B. Complications are uncommon, but please contact us if you have any signs or symptoms of: 1. wound infection (fever higher than 102.5 degrees F, redness, separation of wound, drainage, or increasing pain from the incision) 2. blood clots in legs (pain, swelling, redness and warmth in legs) 3. urinary tract infection (fever higher than 102.5 degrees F, burning upon urination or increased frequency of urination) 4. nerve problems (inability to walk on your toes or heels, numbness, loss of bowel or bladder control) 5. any other symptoms that concern you C. Please call the office at if you have any concerns or questions about your operation or recovery. D. No smoking! Smoking drastically decreases the chance of a solid fusion. E. Do not take any anti-inflammatory medications (Indocin, Advil, Motrin, Aspirin, Naprosyn, etc.) as these may inhibit the chance of a solid fusion. Tylenol is okay to take for pain. MANAGING PAIN AFTER SPINAL SURGERY 1. Narcotic medication is intended for short-term use and will be provided for surgical pain. Surgical pain usually lasts for a period of 4-6 weeks. Narcotic medication includes Percocet, Vicodin, Darvocet, Tylenol #3 or Lortab. 2. Longer-term pain is more appropriately treated with non-narcotic medication such as Tylenol ES. 3. Muscle spasm is not appropriately treated with narcotics. Muscle relaxers such as Soma, Flexeril or Skelaxin can be used along with Tylenol ES. 4. Remember that we all live with some "aches and pains". This is not unusual or uncommon after an injury or as we get older. a. Back pain is expected and may include muscle spasms for 4 to 6 weeks after surgery. The pain should gradually improve. If the pain worsens for no apparent reason, please contact the office. b. Intermittent leg pain may also be experienced and should not be concerned about unless it worsens for no apparent reason. If so, please contact the office. 5. We will provide appropriate medication within the normal guidelines of their prescribed use. We will also be very cautious and aware of potential abuse and extended duration of patients' medication needs. a. Pain medications are for your comfort and to assist with sleep and rest so that the tissue can heal. They are not provided in order to return to normal activity and should not be used through the day. To do so or worsening pain at night can result from ongoing tissue damage and development of tolerance to the prescribed medicine. 6. Please allow 2-3 days to process refills. Prescriptions will not be mailed but must be picked up at the office. FOLLOW UP VISIT: Keep your scheduled follow-up appointment. Any questions, please call the office at . Pending Studies at Discharge: No Stand-Alone Forms: [employer], Smoking Cessation Medications and ID Order Prescriptions: New tramadol 50 mg tablet 50 mg PO Q6H PRN (Reason: pain, moderate) Qty: 30 0RF oxycodone 5 mg tablet 5 mg PO Q6H PRN (Reason: pain) Qty: 30 0RF Continued omeprazole 20 mg capsule,delayed release(DR/EC) 40 mg PO DAILY duloxetine 30 mg capsule,delayed release(DR/EC) 30 mg PO DAILY Rx Instructions: take with 60 mg to equal 90 mg dose duloxetine 60 mg capsule,delayed release(DR/EC) 60 mg PO DAILY Rx Instructions: take with 60 mg to equal 90 mg dose Vitamin D3 1 cap PO DAILY Rx Instructions: otc unknown dose Discharge Orders: Discharge Order (Routine); Ordered 05/08/24 Ordered By: Ethan Oneal Admission Data Admit Date/Time: 05/06/24 08:02 Attending Provider: Nakul Negro Admit Provider: Nakul Negro Primary Care Provider: Merna Slater Other Providers: Nakul Negro; Ethan Oneal
[2024-05-08 11:04] VITALS: BP 122/70
[2024-05-08] MEDS: traMADol HCL 50 MG TABLET PO PRN (11:12)
--- NOTE | 2024-05-08 12:06 | Discharge Summary ---
Discharge Summary Date of Service May 08, 2024 Principal Dx & Hospital Course #1 = Principal Diagnosis (1) Intractable back pain: Nearly resolved after lumbar surgery intervention. Treated while hospitalized with parenteral steroid therapy. Lumbar MRI revealed a new right HNP at the L1-L2 level. Surgical intervention completed on May 06. Postoperative day #2. Much improved. (2) Lumbar degenerative disc disease: History of previous lumbar spine surgery per Dr. Oneal several years ago. Appreciate orthopedic spine consultation and recommendations. Surgical intervention completed on May 06. Much improved (3) GERD (gastroesophageal reflux disease): Stable. Continue PPI (4) Depression: Stable. Continue duloxetine Plan Home today, May 08 Admission HPI Per Admitting Provider 59-year-old white female with a past history of lumbar stenosis, previous lumbar surgery per Dr. Oneal. She stated she was sliding down a slide with her grandson and her back pain developed shortly thereafter. She denies any acute injury. She presented to the ED and received a variety of IM and p.o. medications to no avail. She is placed in observation with intractable lumbar pain. The pain is not radiating. Lumbar MRI scan is ordered and pending. She is admitted for further evaluation and treatment Discharge Exam General-alert and oriented x3, no fever, no chills HEENT-head atraumatic and normocephalic, pupils equal and reactive to light, extraocular muscles intact Neck-no lymphadenopathy or thyromegaly, trachea midline Chest-clear to auscultation. No rales, wheezing or rhonchi Cardiac-regular rate and rhythm, normal S1 and S2 Abdomen-normal bowel sounds, no hepatosplenomegaly Extremities-no cyanosis, clubbing, or edema Neuro-cranial nerves II through XII intact, motor and sensory function within normal limits, strength symmetrical, no focal deficits Psych-normal affect, normal mood Discharge Plan Discharge Items Patient Disposition: Home - Self-Care Reason For Visit: INTRACTABLE BACK PAIN Discharge Diagnosis: L1-L2 herniated nucleus pulposus with radiculopathy Activity: As commented below Non-emergency contact: Primary Care Provider Call non-emergency contact if: you have any medication questions and your symptoms worsen Follow-up/Referrals: Ethan Oneal DO [Surgeon] - Merna Slater MD [Primary Care Provider] - Diet: Regular Addtl Attending Provider Instructions: ACTIVITY RECOMMENDATIONS: SELF CARE INSTRUCTIONS AFTER THORACIC/LUMBAR FUSIONS 1. You may walk to your tolerance. It is good exercise for your legs and back. Expect some back and intermittent leg aches and pains. 2. You may perform "counter-top" level activities (make a sandwich, ej with a project, etc.). 3. No bending or lifting of more than 10 pounds or back twisting of any nature (roll like a log when turning in bed). 4. You may ride in a car for 20-30 minutes at a time. No driving until after your first visit with your doctor. 5. Frequent changes of position and restricting sitting to 30 minutes at a time will help limit the amount of back spasms and stiffness you may experience. 6. You may discontinue the use of ambulatory aids (cane, crutches, etc.) once your strength and confidence allow. 7. You may supervisor sewing room the shower and let water strike your incision when you arrive home at least once daily. Do not take a tub bath, sit in a hot tub or go into a swimming pool until after your first recheck in the office. 8. You may resume previous diet. SPECIAL CARE INSTRUCTIONS: VERY IMPORTANT TO READ AND REVIEW A. Your surgical incision has been closed with a cosmetic suture under the skin that will dissolve in about 6 weeks. In 14 days, you can use a pair of clean scissors and cut the suture that is left outside of the skin at the ends of your incision. 1. The small skin tapes can be removed 7 days after surgery if they have not fallen off by that point. 2. You may keep the wound open to air as much as possible to promote healing after post-op day number 5 unless told otherwise by your doctor. 3. If you think the wound looks like it is becoming infected (redness or worsening drainage) and/or you are experiencing fever, chill or worsening back pain and muscle spasms, contact the office so that we may evaluate you as soon as possible. B. Complications are uncommon, but please contact us if you have any signs or symptoms of: 1. wound infection (fever higher than 102.5 degrees F, redness, separation of wound, drainage, or increasing pain from the incision) 2. blood clots in legs (pain, swelling, redness and warmth in legs) 3. urinary tract infection (fever higher than 102.5 degrees F, burning upon urination or increased frequency of urination) 4. nerve problems (inability to walk on your toes or heels, numbness, loss of bowel or bladder control) 5. any other symptoms that concern you C. Please call the office at if you have any concerns or questions about your operation or recovery. D. No smoking! Smoking drastically decreases the chance of a solid fusion. E. Do not take any anti-inflammatory medications (Indocin, Advil, Motrin, Aspirin, Naprosyn, etc.) as these may inhibit the chance of a solid fusion. Tylenol is okay to take for pain. MANAGING PAIN AFTER SPINAL SURGERY 1. Narcotic medication is intended for short-term use and will be provided for surgical pain. Surgical pain usually lasts for a period of 4-6 weeks. Narcotic medication includes Percocet, Vicodin, Darvocet, Tylenol #3 or Lortab. 2. Longer-term pain is more appropriately treated with non-narcotic medication such as Tylenol ES. 3. Muscle spasm is not appropriately treated with narcotics. Muscle relaxers such as Soma, Flexeril or Skelaxin can be used along with Tylenol ES. 4. Remember that we all live with some "aches and pains". This is not unusual or uncommon after an injury or as we get older. a. Back pain is expected and may include muscle spasms for 4 to 6 weeks after surgery. The pain should gradually improve. If the pain worsens for no apparent reason, please contact the office. b. Intermittent leg pain may also be experienced and should not be concerned about unless it worsens for no apparent reason. If so, please contact the office. 5. We will provide appropriate medication within the normal guidelines of their prescribed use. We will also be very cautious and aware of potential abuse and extended duration of patients' medication needs. a. Pain medications are for your comfort and to assist with sleep and rest s o that the tissue can heal. They are not provided in order to return to normal activity and should not be used through the day. To do so or worsening pain at night can result from ongoing tissue damage and development of tolerance to the prescribed medicine. 6. Please allow 2-3 days to process refills. Prescriptions will not be mailed but must be picked up at the office. FOLLOW UP VISIT: Keep your scheduled follow-up appointment. Any questions, please call the office at . Pending Studies at Discharge: No Stand-Alone Forms: My [facility] [place], Smoking Cessation Medications and DC Order Prescriptions: New tramadol 50 mg tablet 50 mg PO Q6H PRN (Reason: pain, moderate) Qty: 30 0RF oxycodone 5 mg tablet 5 mg PO Q6H PRN (Reason: pain) Qty: 30 0RF Continued omeprazole 20 mg capsule,delayed release(DR/EC) 40 mg PO DAILY duloxetine 30 mg capsule,delayed release(DR/EC) 30 mg PO DAILY Rx Instructions: take with 60 mg to equal 90 mg dose duloxetine 60 mg capsule,delayed release(DR/EC) 60 mg PO DAILY Rx Instructions: take with 60 mg to equal 90 mg dose Vitamin D3 1 cap PO DAILY Rx Instructions: otc unknown dose Discharge Orders: Discharge Order (Routine); Ordered 05/08/24 Ordered By: Ethan Oneal Admission Data Admit Date/Time: 05/06/24 08:02 Attending Provider: Nakul Negro Admit Provider: Nakul Negro Primary Care Provider: Merna Slater Other Providers: Nakul Negro; Ethan Oneal Other Interventions: Discharge Summary Assessment (RN) Last Done: 05/08/24 11:00 Hospital Stay Data Consultations 05/04/24 16:16 ED Decision to Admit Stat 05/04/24 18:51 Consult Orthopedic Spine Surgery Routine Procedures Performed Operation Date: 05/06/24 14:05 Actual Procedures p L1-L2 Decompression and Fusion, Spinal Cord Monitoring(Not Applicable) - Pam Oneal, Diagnostic Imagining Performed 05/04/24 16:08 MRI Lumbar Spine [MR lumbar spine wo con] Stat 05/06/24 14:05 FL lumbar spine 2-3V Routine Pending Results Patient Have Any Pending Studies at Discharge: No Discharge Instructions Given to Patient (Per Discharging Provider) ACTIVITY RECOMMENDATIONS: SELF CARE INSTRUCTIONS AFTER THORACIC/LUMBAR FUSIONS 1. You may walk to your tolerance. It is good exercise for your legs and back. Expect some back and intermittent leg aches and pains. 2. You may perform "counter-top" level activities (make a sandwich, ej with a project, etc.). 3. No bending or lifting of more than 10 pounds or back twisting of any nature (roll like a log when turning in bed). 4. You may ride in a car for 20-30 minutes at a time. No driving until after your first visit with your doctor. 5. Frequent changes of position and restricting sitting to 30 minutes at a time will help limit the amount of back spasms and stiffness you may experience. 6. You may discontinue the use of ambulatory aids (cane, crutches, etc.) once your strength and confidence allow. 7. You may supervisor sewing room the shower and let water strike your incision when you arrive home at least once daily. Do not take a tub bath, sit in a hot tub or go into a swimming pool until after your first recheck in the office. 8. You may resume previous diet. SPECIAL CARE INSTRUCTIONS: VERY IMPORTANT TO READ AND REVIEW A. Your surgical incision has been closed with a cosmetic suture under the skin that will dissolve in about 6 weeks. In 14 days, you can use a pair of clean scissors and cut the suture that is left outside of the skin at the ends of your incision. 1. The small skin tapes can be removed 7 days after surgery if they have not fallen off by that point. 2. You may keep the wound open to air as much as possible to promote healing after post-op day number 5 unless told otherwise by your doctor. 3. If you think the wound looks like it is becoming infected (redness or worsening drainage) and/or you are experiencing fever, chill or worsening back pain and muscle spasms, contact the office so that we may evaluate you as soon as possible. B. Complications are uncommon, but please contact us if you have any signs or symptoms of: 1. wound infection (fever higher than 102.5 degrees F, redness, separation of wound, drainage, or increasing pain from the incision) 2. blood clots in legs (pain, swelling, redness and warmth in legs) 3. urinary tract infection (fever higher than 102.5 degrees F, burning upon urination or increased frequency of urination) 4. nerve problems (inability to walk on your toes or heels, numbness, loss of bowel or bladder control) 5. any other symptoms that concern you C. Please call the office at if you have any concerns or questions about your operation or recovery. D. No smoking! Smoking drastically decreases the chance of a solid fusion. E. Do not take any anti-inflammatory medications (Indocin, Advil, Motrin, Aspirin, Naprosyn, etc.) as these may inhibit the chance of a solid fusion. Tylenol is okay to take for pain. MANAGING PAIN AFTER SPINAL SURGERY 1. Narcotic medication is intended for short-term use and will be provided for surgical pain. Surgical pain usually lasts for a period of 4-6 weeks. Narcotic medication includes Percocet, Vicodin, Darvocet, Tylenol #3 or Lortab. 2. Longer-term pain is more appropriately treated with non-narcotic medication such as Tylenol ES. 3. Muscle spasm is not appropriately treated with narcotics. Muscle relaxers such as Soma, Flexeril or Skelaxin can be used along with Tylenol ES. 4. Remember that we all live with some "aches and pains". This is not unusual or uncommon after an injury or as we get older. a. Back pain is expected and may include muscle spasms for 4 to 6 weeks after surgery. The pain should gradually improve. If the pain worsens for no apparent reason, please contact the office. b. Intermittent leg pain may also be experienced and should not be concerned about unless it worsens for no apparent reason. If so, please contact the office. 5. We will provide appropriate medication within the normal guidelines of their prescribed use. We will also be very cautious and aware of potential abuse and extended duration of patients' medication needs. a. Pain medications are for your comfort and to assist with sleep and rest so that the tissue can heal. They are not provided in order to return to normal activity and should not be used through the day. To do so or worsening pain at night can result from ongoing tissue damage and development of tolerance to the prescribed medicine. 6. Please allow 2-3 days to process refills. Prescriptions will not be mailed but must be picked up at the office. FOLLOW UP VISIT: Keep your scheduled follow-up appointment. Any questions, please call the office at . Total Time Total Time Spent Total Time Spent (In Minutes): 45 minutes Coding Level of Care Code 06586 INP/OBS DISCH >30 MIN Diagnoses Intractable back pain M54.9 Lumbar degenerative disc disease M51.369 GERD (gastroesophageal reflux disease) K21.9 Depression F32.A
== END 2024-05-08 14:17 | disposition home or self-care (01) | DRG 402 ==
LOC: SUATTDRO → 3E 12:43 → ED 12:43 → 3E 17:38